=== PATIENT | female | born 1975 | race Two or more races ===

== ENCOUNTER 2020-06-27 13:45 | Outpatient (REF) | payer OTHER, SELFPAY | END 2020-06-27 13:46 | disposition home or self-care (01) | LOC: HO.LAB 13:45 | PROVIDERS: PCP Internal Medicine; Visit Provider Internal Medicine | DX: Z20.828 Contact with and (suspected) exposure to other viral communicable diseases (principal) | CPT/HCPCS: 87635 ==

== ENCOUNTER 2020-08-30 08:04 | Outpatient (REF) | payer OTHER, SELFPAY ==
[2020-08-30 08:14] LABS: MANUAL DIFF FLAG NO
[2020-08-30 08:19] LABS: Basophils Absolute Auto 0.1 X10*3/uL (0.0-0.2); Basophils Percent Auto 0.8 % (0-2); Eosinophils Absolute Auto 0.2 X10*3/uL (0.0-0.4); Eosinophils Percent Auto 1.4 % (0-4); Hematocrit 44.3 % (37-47); Hemoglobin 14.9 g/dl (12.0-16.0); Imm Gran Abs Auto 0.15 X10*3/uL (0.00-0.03); Imm Gran Pct Auto 1.4 % (0.0-0.4); Lymphocytes Absolute Auto 3.1 X10*3/uL (1.2-4.9); Lymphocytes Percent Auto 28.5 % (20-40); Mean Corpuscular HGB Conc 33.6 g/dl (31.0-35.0); Mean Corpuscular Hemoglobin 31.8 pg (27.0-33.0); Mean Corpuscular Volume 94.7 fL (80-98); Mean Platelet Volume 9.9 fL (9.4-12.3); Monocytes Absolute Auto 0.7 X10*3/uL (0.1-1.2); Monocytes Percent Auto 6.3 % (2-11); Neutrophils Absolute Auto 6.8 X10*3/uL (2.0-8.3); Neutrophils Percent Auto 61.6 % (45-73); Platelet Count 289 X10*3/uL (160-400); Red Blood Count 4.68 X10*6/uL (4.20-5.50); Red Cell Distribution Width 13.2 % (11.0-16.0)
[2020-08-30 09:01] LABS: Alanine Aminotransferase 13 U/L (0-31); Albumin Level 4.2 g/dL (3.5-5.0); Alkaline Phosphatase 67 U/L (39-117); Anion Gap 13 (12-20); Aspartate Amino Transferase 13 U/L (5-31); Bilirubin Total 0.2 mg/dL (0.0-1.0); Blood Urea Nitrogen 7 mg/dL (9-16); Carbon Dioxide 26 mmol/L (22-29); Chloride 106 mmol/L (96-108); Cholesterol 199 mg/dL; Estimated Glomerular Filt Rate > 60; Glucose Random 133 mg/dL (60-115); HDL Cholesterol 51 mg/dL; LDL Cholesterol Calculated 112 mg/dl; Potassium 3.9 mmol/l (3.3-5.1); Sodium 141 mmol/L (135-145); Triglycerides 183 mg/dL
[2020-08-30 09:08] LABS: Calcium 8.9 mg/dL (8.4-10.2)
[2020-08-30 09:13] LABS: Ferritin 29 ng/mL (10-250); Thyroid Stimulating Hormone 2.15 uIU/mL (0.32-4.0)
[2020-08-30 09:31] LABS: Creatinine Urine 60.12 mg/dL; Microalbumin Urine < 5.0 mg/L; Vitamin B12 < 146 pg/mL (200-900)
[2020-08-30 10:08] LABS: Estimated Average Glucose 151 mg/dL; Hemoglobin A1c % 6.9 %
== END 2020-08-30 08:05 | disposition home or self-care (01) ==
LOC: HO.LAB 08:04
PROVIDERS: PCP Internal Medicine; Visit Provider Internal Medicine
DX: D50.8 Other iron deficiency anemias (principal); E11.9 Type 2 diabetes mellitus without complications; E78.00 Pure hypercholesterolemia, unspecified; R80.9 Proteinuria, unspecified; I10 Essential (primary) hypertension
CPT/HCPCS: 36415; 80053; 80061; 82043; 82607; 82728; 83036; 84443; 85025

== ENCOUNTER 2020-09-12 13:58 | Outpatient (REF) | payer OTHER, SELFPAY ==
--- NOTE | 2020-09-12 14:05 | MM_ITS ---
EXAMINATION: MM SCREENING DIGITAL BREAST TOMOSYNTHESIS, BILATERAL CLINICAL INFORMATION: Screening. Asymptomatic. Family history breast cancer mother, cousin. The lifetime risk of breast cancer based on the Tyrer-Cuzick Model is 21%. COMPARISON: Mammography: 07/28/2019, 07/06/2018, 06/03/2017, 05/21/2016 TECHNIQUE: Digital breast tomosynthesis is performed in both the craniocaudal and mediolateral oblique views along with computer-aided detection (CAD). Synthesized 2D images are generated from the tomosynthesis. FINDINGS: There are scattered areas of fibroglandular density (ACR BI-RADS breast composition Category b). There are no significant masses, abnormal calcifications, or other abnormalities. Parenchymal pattern is similar to prior study. There is no developing density. The axilla and skin contours are unremarkable. MM/MM tomosynthesis screening BI IMPRESSION: No mammographic evidence of malignancy. ASSESSMENT: BI-RADS 1: Negative RECOMMENDATION: 1. Routine annual mammography screening. 2. The lifetime risk of breast cancer based on the Tyrer-Cuzick Model is 21%. Additional annual adjunct screening with breast MRI may be of benefit in women with a risk score of 20% or greater. This patient's information was entered into a reminder system with a target due date for their next mammogram.
== END 2020-09-12 13:59 | disposition home or self-care (01) ==
LOC: HO.MAMMO 13:58
PROVIDERS: PCP Internal Medicine; Visit Provider Internal Medicine
DX: Z12.31 Encounter for screening mammogram for malignant neoplasm of breast (principal)
CPT/HCPCS: 77063; 77067

== ENCOUNTER 2020-11-30 09:15 | Outpatient (REF) | payer OTHER, SELFPAY ==
[2020-11-30 09:56] LABS: Estimated Average Glucose 157 mg/dL; Hemoglobin A1c % 7.1 %
[2020-11-30 10:11] LABS: Alanine Aminotransferase 16 U/L (0-31); Albumin Level 4.2 g/dL (3.5-5.0); Alkaline Phosphatase 64 U/L (39-117); Anion Gap 11 (12-20); Aspartate Amino Transferase 14 U/L (5-31); Bilirubin Total 0.6 mg/dL (0.0-1.0); Blood Urea Nitrogen 8 mg/dL (9-16); Calcium 8.9 mg/dL (8.4-10.2); Carbon Dioxide 27 mmol/L (22-29); Chloride 108 mmol/L (96-108); Estimated Glomerular Filt Rate > 60; Glucose Random 119 mg/dL (60-115); Potassium 4.3 mmol/L (3.3-5.1); Sodium 142 mmol/L (135-145); Total Protein 6.8 g/dL (6.5-8.0)
== END 2020-11-30 09:16 | disposition home or self-care (01) ==
LOC: HO.LAB 09:15
PROVIDERS: PCP Internal Medicine; Visit Provider Internal Medicine
DX: D51.3 Other dietary vitamin B12 deficiency anemia (principal); E11.9 Type 2 diabetes mellitus without complications; E78.00 Pure hypercholesterolemia, unspecified; I10 Essential (primary) hypertension
CPT/HCPCS: 36415; 80053; 83036

== ENCOUNTER → 2020-12-18 15:28 | Outpatient (BNVA) | payer OTHER, SELFPAY | PROVIDERS: PCP Internal Medicine; Visit Provider Nurse Practitioner ==

== ENCOUNTER → 2021-01-11 13:24 | Outpatient (BNVA) | payer OTHER, SELFPAY | PROVIDERS: PCP Internal Medicine; Visit Provider Nurse Practitioner ==

== ENCOUNTER → 2021-02-13 08:17 | Outpatient (BNVA) | payer OTHER, SELFPAY | PROVIDERS: PCP Internal Medicine; Visit Provider Nurse Practitioner ==

== ENCOUNTER → 2021-04-16 08:21 | Outpatient (BNVA) | payer OTHER, SELFPAY | PROVIDERS: Visit Provider Nurse Practitioner ==

== ENCOUNTER → 2021-05-29 14:00 | Outpatient (BNVA) | payer OTHER, SELFPAY | PROVIDERS: Visit Provider Nurse Practitioner ==

== ENCOUNTER → 2021-08-13 15:08 | Outpatient (BNVA) | payer OTHER, SELFPAY | PROVIDERS: Visit Provider Nurse Practitioner ==

== ENCOUNTER 2021-09-26 11:48 | Outpatient (REF) | payer OTHER, SELFPAY ==
--- NOTE | ~2021-09-26 | MM_ITS ---
EXAMINATION: MM SCREENING DIGITAL BREAST TOMOSYNTHESIS, BILATERAL CLINICAL INFORMATION: Screening. Asymptomatic. The lifetime risk of breast cancer based on the Tyrer-Cuzick Model is 19.5%. COMPARISON: Mammography: 09/12/2020, 07/28/2019, 07/06/2018, 05/21/2016 TECHNIQUE: Digital breast tomosynthesis is performed in both the craniocaudal and mediolateral oblique views along with computer-aided detection (CAD). Synthesized 2D images are generated from the tomosynthesis. FINDINGS: There are scattered areas of fibroglandular density (ACR BI-RADS breast composition Category b). There are no significant masses, abnormal calcifications, or other abnormalities. Parenchymal pattern is similar to prior studies. There are scattered minor asymmetries similar to prior exams. No interval mass or architectural abnormality. The axilla and skin contours are unremarkable. MM/MM tomosynthesis screening BI IMPRESSION: No mammographic evidence of malignancy. ASSESSMENT: BI-RADS 2: Benign RECOMMENDATION: Routine annual mammography screening. This patient's information was entered into a reminder system with a target due date for their next mammogram.
== END 2021-09-26 11:49 | disposition home or self-care (01) ==
LOC: HO.MAMMO 11:48
PROVIDERS: Visit Provider Internal Medicine
DX: Z12.31 Encounter for screening mammogram for malignant neoplasm of breast (principal)
CPT/HCPCS: 77063; 77067

== ENCOUNTER 2021-12-06 15:25 | Outpatient (REF) | payer OTHER, SELFPAY ==
[2021-12-06 17:04] LABS: MANUAL DIFF FLAG NO
[2021-12-06 17:21] LABS: Basophils Absolute Auto 0.1 X10*3/uL (0.0-0.2); Basophils Percent Auto 0.8 % (0-2); Eosinophils Absolute Auto 0.1 X10*3/uL (0.0-0.4); Eosinophils Percent Auto 1.1 % (0-4); Hematocrit 42.5 % (37.0-47.0); Imm Gran Abs Auto 0.11 X10*3/uL (0.00-0.03); Lymphocytes Absolute Auto 2.5 X10*3/uL (1.2-4.9); Lymphocytes Percent Auto 22.1 % (20-40); Mean Corpuscular HGB Conc 32.9 g/dl (31.0-35.0); Mean Corpuscular Hemoglobin 31.3 pg (27.0-33.0); Mean Corpuscular Volume 95.1 fL (80.0-98.0); Mean Platelet Volume 9.6 fL (9.4-12.3); Monocytes Absolute Auto 0.8 X10*3/uL (0.1-1.2); Monocytes Percent Auto 6.8 % (2-11); Neutrophils Absolute Auto 7.7 x10*3/uL (2.0-8.3); Neutrophils Percent Auto 68.2 % (45-73); Platelet Count 318 X10*3/uL (160-400); Red Blood Count 4.47 X10*6/uL (4.20-5.50); White Blood Count 11.2 X10*3/uL (4.8-10.8)
[2021-12-06 17:43] LABS: C Reactive Protein 0.89 mg/dL (< or = 0.50)
== END 2021-12-06 15:26 | disposition home or self-care (01) ==
LOC: HO.LAB 15:25
PROVIDERS: PCP Internal Medicine; Referring Provider Internal Medicine; Visit Provider Nurse Practitioner
DX: R10.9 Unspecified abdominal pain (principal); K51.90 Ulcerative colitis, unspecified, without complications; K64.9 Unspecified hemorrhoids
CPT/HCPCS: 36415; 85025; 86140; 99212

== ENCOUNTER 2022-01-07 10:39 | Outpatient (REF) | payer OTHER, SELFPAY ==
[2022-01-07 10:55] LABS: MANUAL DIFF FLAG NO
[2022-01-07 11:09] LABS: Basophils Absolute Auto 0.2 X10*3/uL (0.0-0.2); Basophils Percent Auto 1.5 % (0-2); Eosinophils Absolute Auto 0.3 X10*3/uL (0.0-0.4); Eosinophils Percent Auto 2.5 % (0-4); Hematocrit 42.6 % (37.0-47.0); Hemoglobin 14.3 g/dl (12.0-16.0); Imm Gran Abs Auto 0.25 X10*3/uL (0.00-0.03); Imm Gran Pct Auto 2.5 % (0.0-0.4); Lymphocytes Absolute Auto 2.9 X10*3/uL (1.2-4.9); Lymphocytes Percent Auto 28.5 % (20-40); Mean Corpuscular HGB Conc 33.6 g/dl (31.0-35.0); Mean Corpuscular Volume 95.3 fL (80.0-98.0); Mean Platelet Volume 9.4 fL (9.4-12.3); Monocytes Absolute Auto 0.8 X10*3/uL (0.1-1.2); Monocytes Percent Auto 7.8 % (2-11); Neutrophils Absolute Auto 5.8 x10*3/uL (2.0-8.3); Neutrophils Percent Auto 57.2 % (45-73); Platelet Count 322 X10*3/uL (160-400); Red Blood Count 4.47 X10*6/uL (4.20-5.50); Red Cell Distribution Width 13.2 % (11.0-16.0); White Blood Count 10.1 X10*3/uL (4.8-10.8)
[2022-01-07 11:37] LABS: Alanine Aminotransferase 17 U/L (0-31); Alkaline Phosphatase 73 U/L (39-117); Anion Gap 13 (12-20); Aspartate Amino Transferase 15 U/L (5-31); Bilirubin Total 0.4 mg/dL (0.0-1.0); Blood Urea Nitrogen 9 mg/dL (9-16); Calcium 9.3 mg/dL (8.4-10.2); Carbon Dioxide 22 mmol/L (22-29); Chloride 109 mmol/L (96-108); Cholesterol 201 mg/dL; Estimated Glomerular Filt Rate > 60; Glucose Random 122 mg/dL (60-115); HDL Cholesterol 45 mg/dL; LDL Cholesterol Calculated 121 mg/dl; Sodium 140 mmol/L (135-145); Total Protein 6.8 g/dL (6.5-8.0); Triglycerides 177 mg/dL
[2022-01-07 11:58] LABS: Estimated Average Glucose 171 mg/dL; Hemoglobin A1c % 7.6 %
== END 2022-01-07 10:40 | disposition home or self-care (01) ==
LOC: HO.LAB 10:39
PROVIDERS: PCP Internal Medicine; Visit Provider Internal Medicine
DX: Z00.00 Encounter for general adult medical examination without abnormal findings (principal); E11.9 Type 2 diabetes mellitus without complications; E78.00 Pure hypercholesterolemia, unspecified; K51.30 Ulcerative (chronic) rectosigmoiditis without complications; I10 Essential (primary) hypertension
CPT/HCPCS: 36415; 80053; 80061; 83036; 85025

== ENCOUNTER → 2022-01-15 15:07 | Outpatient (BNVA) | payer OTHER, SELFPAY | PROVIDERS: PCP Internal Medicine; Referring Provider Internal Medicine; Visit Provider Nurse Practitioner | DX: K51.90 Ulcerative colitis, unspecified, without complications (principal); K64.9 Unspecified hemorrhoids; Z79.899 Other long term (current) drug therapy | CPT/HCPCS: 99212 ==

== ENCOUNTER 2022-01-16 15:10 | Outpatient (REF) | payer OTHER, SELFPAY ==
[2022-01-16 16:04] LABS: C Reactive Protein 0.83 mg/dL (< or = 0.50)
== END 2022-01-16 15:11 | disposition home or self-care (01) ==
LOC: HO.LAB 15:10
PROVIDERS: PCP Internal Medicine; Visit Provider Nurse Practitioner
DX: K51.90 Ulcerative colitis, unspecified, without complications (principal); K64.9 Unspecified hemorrhoids
CPT/HCPCS: 36415; 86140

== ENCOUNTER 2022-03-14 15:27 | Outpatient (REF) | payer OTHER, SELFPAY | END 2022-03-14 15:28 | disposition home or self-care (01) | LOC: HO.LAB 15:27 | PROVIDERS: PCP Internal Medicine; Visit Provider Nurse Practitioner | DX: K51.90 Ulcerative colitis, unspecified, without complications (principal) | CPT/HCPCS: 36415; 86140; 99212 ==

== ENCOUNTER 2022-04-13 10:29 | Outpatient (REF) | payer OTHER, SELFPAY ==
[2022-04-13 11:09] LABS: Estimated Average Glucose 166 mg/dL; Hemoglobin A1c % 7.4 %
[2022-04-13 11:25] LABS: Alanine Aminotransferase 17 U/L (0-31); Albumin Level 4.1 g/dL (3.5-5.0); Alkaline Phosphatase 69 U/L (39-117); Anion Gap 12 (12-20); Aspartate Amino Transferase 15 U/L (5-31); Bilirubin Total 0.4 mg/dL (0.0-1.0); Blood Urea Nitrogen 5 mg/dL (9-16); Carbon Dioxide 24 mmol/L (22-29); Chloride 107 mmol/L (96-108); Cholesterol 197 mg/dL; Estimated Glomerular Filt Rate > 60; Glucose Random 143 mg/dL (60-115); HDL Cholesterol 42 mg/dL; LDL Cholesterol Calculated 117 mg/dl; Potassium 4.4 mmol/L (3.3-5.1); Sodium 139 mmol/L (135-145); Total Protein 6.8 g/dL (6.5-8.0); Triglycerides 194 mg/dL
[2022-04-13 11:25] LABS: Creatinine Urine 66.06 mg/dL; Microalbum/Creatinine Ratio Ur 16.6 ug/mg cr
== END 2022-04-13 10:30 | disposition home or self-care (01) ==
LOC: HO.LAB 10:29
PROVIDERS: PCP Internal Medicine; Visit Provider Internal Medicine
DX: E11.65 Type 2 diabetes mellitus with hyperglycemia (principal); E78.00 Pure hypercholesterolemia, unspecified; I10 Essential (primary) hypertension
CPT/HCPCS: 36415; 80053; 80061; 82043; 83036

== ENCOUNTER → 2022-06-13 15:10 | Outpatient (BNVA) | payer OTHER, SELFPAY | PROVIDERS: PCP Internal Medicine; Visit Provider Nurse Practitioner | DX: K51.90 Ulcerative colitis, unspecified, without complications (principal) | CPT/HCPCS: 99212 ==

== ENCOUNTER 2022-06-21 14:00 | Outpatient (REF) | payer OTHER, SELFPAY ==
[2022-06-24 14:32] LABS: TS Negative Control Passed; TS Panel A 0; TS Panel B 0; TS Positive Control Passed; TSpotTB Negative (Negative)
== END 2022-06-21 14:01 | disposition home or self-care (01) ==
LOC: HO.LAB 14:00
PROVIDERS: PCP Internal Medicine; Visit Provider Nurse Practitioner
DX: Z11.1 Encounter for screening for respiratory tuberculosis (principal); K51.90 Ulcerative colitis, unspecified, without complications
CPT/HCPCS: 36415; 86481

== ENCOUNTER → 2022-06-27 15:14 | Outpatient (BNVA) | payer OTHER, SELFPAY | PROVIDERS: PCP Internal Medicine; Referring Provider Internal Medicine; Visit Provider Nurse Practitioner | DX: K51.90 Ulcerative colitis, unspecified, without complications (principal) | CPT/HCPCS: 99212 ==

== ENCOUNTER 2022-07-13 10:39 | Outpatient (REF) | payer OTHER, SELFPAY ==
[2022-07-13 10:49] LABS: MANUAL DIFF FLAG NO
[2022-07-13 11:30] LABS: Basophils Absolute Auto 0.1 X10*3/uL (0.0-0.2); Basophils Percent Auto 1.7 % (0-2); Eosinophils Absolute Auto 0.2 X10*3/uL (0.0-0.4); Eosinophils Percent Auto 1.8 % (0-4); Hematocrit 41.8 % (37.0-47.0); Hemoglobin 13.7 g/dl (12.0-16.0); Imm Gran Abs Auto 0.36 X10*3/uL (0.00-0.03); Imm Gran Pct Auto 4.2 % (0.0-0.4); Lymphocytes Absolute Auto 3.2 X10*3/uL (1.2-4.9); Lymphocytes Percent Auto 37.3 % (20-40); Mean Corpuscular HGB Conc 32.8 g/dl (31.0-35.0); Mean Corpuscular Volume 94.6 fL (80.0-98.0); Mean Platelet Volume 9.6 fL (9.4-12.3); Monocytes Absolute Auto 0.6 X10*3/uL (0.1-1.2); Monocytes Percent Auto 7.2 % (2-11); Neutrophils Absolute Auto 4.1 x10*3/uL (2.0-8.3); Neutrophils Percent Auto 47.8 % (45-73); Platelet Count 297 X10*3/uL (160-400); Red Blood Count 4.42 X10*6/uL (4.20-5.50); Red Cell Distribution Width 13.4 % (11.0-16.0); White Blood Count 8.5 X10*3/uL (4.8-10.8)
[2022-07-13 12:06] LABS: Estimated Average Glucose 192 mg/dL; Hemoglobin A1c % 8.3 %
[2022-07-13 12:34] LABS: Alanine Aminotransferase 16 U/L (0-31); Albumin Level 3.8 g/dL (3.5-5.0); Alkaline Phosphatase 62 U/L (39-117); Anion Gap 14 (12-20); Aspartate Amino Transferase 15 U/L (5-31); Bilirubin Total 0.4 mg/dL (0.0-1.0); Blood Urea Nitrogen 8 mg/dL (9-16); Calcium 8.8 mg/dL (8.4-10.2); Carbon Dioxide 26 mmol/L (22-29); Chloride 108 mmol/L (96-108); Estimated Glomerular Filt Rate > 60; Glucose Fasting 102 mg/dL (60-99); Potassium 3.8 mmol/L (3.3-5.1); Sodium 144 mmol/L (135-145); Total Protein 6.1 g/dL (6.5-8.0)
== END 2022-07-13 10:40 | disposition home or self-care (01) ==
LOC: HO.LAB 10:39
PROVIDERS: PCP Internal Medicine; Visit Provider Internal Medicine
DX: D50.9 Iron deficiency anemia, unspecified (principal); E11.69 Type 2 diabetes mellitus with other specified complication; E78.2 Mixed hyperlipidemia; I10 Essential (primary) hypertension
CPT/HCPCS: 36415; 80053; 83036; 85025

== ENCOUNTER → 2022-07-25 14:55 | Outpatient (BNVA) | payer OTHER, SELFPAY | PROVIDERS: PCP Internal Medicine; Visit Provider Nurse Practitioner | DX: K51.90 Ulcerative colitis, unspecified, without complications (principal); R10.9 Unspecified abdominal pain; Z83.71 Family history of colonic polyps | CPT/HCPCS: 99212 ==

== ENCOUNTER → 2022-09-05 15:23 | Outpatient (BNVA) | payer OTHER, SELFPAY | PROVIDERS: PCP Internal Medicine; Visit Provider Nurse Practitioner | DX: K51.90 Ulcerative colitis, unspecified, without complications (principal) | CPT/HCPCS: 99212 ==

== ENCOUNTER 2022-09-27 12:05 | Outpatient (REF) | payer OTHER, SELFPAY ==
--- NOTE | ~2022-09-27 | MM_ITS ---
EXAMINATION: MM SCREENING DIGITAL BREAST TOMOSYNTHESIS, BILATERAL CLINICAL INFORMATION: Screening. Asymptomatic. The lifetime risk of breast cancer based on the Tyrer-Cuzick Model is 20%. COMPARISON: Mammography: 09/26/2021, 09/12/2020, 07/28/2019, 07/06/2018 TECHNIQUE: Digital breast tomosynthesis is performed in both the craniocaudal and mediolateral oblique views along with computer-aided detection (CAD). Synthesized 2D images are generated from the tomosynthesis. Additional left MLO view is provided. FINDINGS: There are scattered areas of fibroglandular density (ACR BI-RADS breast composition Category b). There are no significant masses, abnormal calcifications, or other abnormalities. Parenchymal pattern is similar to prior studies. There is no developing density or architectural abnormality. The axilla and skin contours are unremarkable. No significant changes. MM/MM tomosynthesis screening BI IMPRESSION: No mammographic evidence of malignancy. ASSESSMENT: BI-RADS 1: Negative RECOMMENDATION: Routine annual mammography screening. This patient's information was entered into a reminder system with a target due date for their next mammogram.
== END 2022-09-27 12:06 | disposition home or self-care (01) ==
LOC: HO.MAMMO 12:05
PROVIDERS: PCP Internal Medicine; Visit Provider Internal Medicine
DX: Z12.31 Encounter for screening mammogram for malignant neoplasm of breast (principal)
CPT/HCPCS: 77063; 77067

== ENCOUNTER → 2022-10-17 14:50 | Outpatient (BNVA) | payer OTHER, SELFPAY | PROVIDERS: PCP Internal Medicine; Visit Provider Nurse Practitioner | DX: K51.90 Ulcerative colitis, unspecified, without complications (principal); Z83.71 Family history of colonic polyps | CPT/HCPCS: 99212 ==

== ENCOUNTER 2022-10-21 06:05 | Outpatient (REF) | payer OTHER, SELFPAY | END 2022-10-21 06:06 | disposition home or self-care (01) | LOC: HO.LAB 06:05 | PROVIDERS: PCP Internal Medicine; Visit Provider Internal Medicine | DX: Z13.89 Encounter for screening for other disorder (principal) ==

== ENCOUNTER 2022-10-22 06:09 | Outpatient (REF) | payer OTHER, SELFPAY ==
[2022-10-22 08:16] LABS: Estimated Average Glucose 174 mg/dL; Hemoglobin A1c % 7.7 %
[2022-10-22 08:42] LABS: Alanine Aminotransferase 17 U/L (0-31); Alkaline Phosphatase 67 U/L (39-117); Anion Gap 16 (12-20); Aspartate Amino Transferase 15 U/L (5-31); Bilirubin Total 0.6 mg/dL (0.0-1.0); Blood Urea Nitrogen 12 mg/dL (9-16); Calcium 9.4 mg/dL (8.4-10.2); Carbon Dioxide 27 mmol/L (22-29); Chloride 105 mmol/L (96-108); Cholesterol 220 mg/dL; Estimated Glomerular Filt Rate > 60; Glucose Random 104 mg/dL (60-115); HDL Cholesterol 49 mg/dL; LDL Cholesterol Calculated 132 mg/dl; Potassium 3.8 mmol/L (3.3-5.1); Sodium 144 mmol/L (135-145); Total Protein 6.4 g/dL (6.5-8.0); Triglycerides 199 mg/dL
[2022-10-22 08:45] LABS: Creatinine Urine 128.82 mg/dL; Microalbum/Creatinine Ratio Ur 14.7 ug/mg cr
[2022-10-22 09:21] LABS: Folate 12.4 ng/mL (> or = 4.0); Vitamin B12 < 148 pg/mL (200-900)
== END 2022-10-22 06:10 | disposition home or self-care (01) ==
LOC: HO.LAB 06:09
PROVIDERS: PCP Internal Medicine; Visit Provider Internal Medicine
DX: D51.9 Vitamin B12 deficiency anemia, unspecified (principal); E11.65 Type 2 diabetes mellitus with hyperglycemia; E78.00 Pure hypercholesterolemia, unspecified; R80.9 Proteinuria, unspecified
CPT/HCPCS: 36415; 80053; 80061; 82043; 82607; 82746; 83036

== ENCOUNTER → 2022-11-14 14:57 | Outpatient (BNVA) | payer OTHER, SELFPAY | PROVIDERS: PCP Internal Medicine; Visit Provider Nurse Practitioner | DX: K51.90 Ulcerative colitis, unspecified, without complications (principal); K64.9 Unspecified hemorrhoids; Z79.52 Long term (current) use of systemic steroids; Z83.71 Family history of colonic polyps | CPT/HCPCS: 99212 ==

== ENCOUNTER 2023-01-05 10:18 | Emergency (ER) | payer OTHER, SELFPAY ==
[2023-01-05 10:36] VITALS: BP 117/64; PULSE 108; RESP 18; TEMP 36.3; O2SAT 95; BMI 25.2
--- NOTE | 2023-01-05 10:58 | ED_ITS ---
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 patient's symptoms started since yesterday pain as localized to the epigastric area and left upper quadrant area, pain has been co nstant since yesterday no radiation, constant frequent vomiting patient vomited 5-7 times since yesterday still feeling nausea, nonbloody watery diarrhea. No dysuria, no frequency urination. No past surgical history in the abdomen, patient do not think she is today. Related Data Home Medications Medication Instructions Recorded Confirmed cyanocobalamin (vitamin B-12) 1,000 mcg PO DAILY 12/18/20 1,000 mcg tablet ezetimibe 10 mg tablet 10 mg PO DAILY 12/18/20 metformin 1,000 mg tablet 1,000 mg PO BID 12/18/20 valsartan 320 mg tablet 320 mg PO DAILY 12/18/20 rosuvastatin 40 mg tablet 40 mg PO DAILY 03/14/22 dulaglutide 1.5 mg/0.5 mL mg subcut QWEEK 07/25/22 subcutaneous pen injector (Trulicity) glimepiride 2 mg tablet 2 mg PO DAILY 11/14/22 Previous Rx's Medication Instructions Recorded dicyclomine 10 mg capsule See Rx Instructions PO QID 30 days 04/16/21 #120 caps simethicone 180 mg capsule 180 mg PO QID 30 days #120 caps 12/06/21 hydrocortisone 1 % topical cream 1 appl HI BID PRN skin irritation 01/15/22 (Ala-Olivier) 30 days #28.4 grams mesalamine 1.2 gram tablet,delayed 4.8 g PO DAILY 30 days #120 tabs 09/05/22 release adalimumab 40 mg/0.4 mL 40 mg (0.4 mL) subcut Q2W #2 ea 10/04/22 subcutaneous pen kit (Humira(CF) Pen) prednisone 20 mg tablet 20 mg PO DAILY #30 tabs 12/30/22 Allergies Allergy/AdvReac Type Severity Reaction Status Date / Time No Known Allergies Allergy Verified 01/05/23 10:39 [No Known Allergies*] Review of Systems Review of Systems: All other systems are reviewed and are negative Constitutional: Reports as per HPI and Reports no additional constitutional co mplaints Eyes: Reports as per HPI and Reports no additional eye complaints Reports system reviewed and no additional complaints, except as documented Cardiovascular: Reports as per HPI and Reports no additional cardiovascular complaints Respiratory: Reports as per HPI and Reports no additional respiratory complaints Gastrointestinal: Reports as per HPI and Reports no additional gastrointestinal complaints Genitourinary: Reports no additional female genitourinary complaints Musculoskeletal: Reports no additional musculoskeletal complaints Skin/Breast: Reports system reviewed and no additional complaints, except as docu Psychiatric: Reports no additional psychiatric complaints Endocrine: Reports no additional endocrine complaints Hematologic/Lymphatic: Reports no additional hematologic/lymphatic complaints Allergic/Immunologic: Reports no additional allergic/immunologic complaints Reports system reviewed and no additional complaints, except as documented and Reports Abnormal speech present [facility] Past Medical History Surgical History Hx of section Hx of colonoscopy Family History Family History Father No problems noted. Mother Breast cancer Social History Social History Alcohol intake: current Alcohol intake frequency: does not drink Advance Directives: No Advance Directives Information Provided: Yes Physical Exam Vital Signs: Vital Signs: Last Vital Signs Temp 97.3 F 01/05/23 10:36 Pulse 96 01/05/23 11:56 Resp 16 01/05/23 11:56 BP 100/60 01/05/23 11:56 Pulse Ox 96 01/05/23 11:56 O2 Del Method Room Air 01/05/23 11:56 BMI result Body Mass Index 25.2 Vital signs have been reviewed as appeared to be correct. Blood pressure normal. Heart rate normal. Respiration rate normal. Temperature normal. Oxygen saturation normal. Appearance: Alert. Oriented X3. No acute distress. Head: Normal external exam. Normocephalic. Atraumatic. No [place] signs noted. No raccoon eyes noted Eyes: PERRLA. EOMI. Conjunctiva and sclera normal. Eyelids normal. ENT: TM's Normal. Pharynx normal. Uvula midline. Moist mucous membranes. No trismus noted. No drooling noted. No muffled voice noted. Neck: Normal inspection. Neck supple. FROM. No adenopathy. Thyroid Normal. No meningeal signs. No neck mass noted. CVS: Normal heart rate and rhythm. Heart sound normal. No murmurs noted. Pulses normal throughout. Respiratory: No respiratory distress. Painless inspiration. Breath sounds normal. No wheezes/rales/rhonchi noted. Chest nontender. No accessory muscle usage noted or decreased air movement noted. Abdomen: Soft, epigastric tenderness, no rebound tenderness, no guarding.. Bowel sounds normal in all 4 quadrants. No distention noted. No organomegaly noted. No visible injury noted. Back: No CVA tenderness. Full range of motion noted. Skin: Skin warm and dry. Normal skin color. Normal skin turgor. No mary hes/lesions/lacerations noted. Extremities: No lower extremity edema. Extremities exhibit normal range of motion. Extremities nontender. Neuro: Oriented X 3. Cranial nerve exam: II-XII are grossly intact No motor deficit. No sensory deficit. Reflexes normal. Course Course Course Narrative: Acute gastroenteritis, patient feels better after IV hydration and given Zofran with Imodium able to tolerate p.o. intake. Medications Administered Generic Name Dose Route Start Last Admin Trade Name Freq PRN Reason Stop Dose Admin Sodium Chloride 1,000 mls @ 999 mls/hr 01/05/23 12:30 01/05/23 12:37 Ns IV 01/05/23 13:30 999 mls/hr .Q1H1M ONE Administration Discontinued Medications Generic Name Dose Route Start Last Admin Trade Name Freq PRN Reason Stop Dose Admin Al Hydroxide/Mg Hydroxide 30 ml 01/05/23 12:28 01/05/23 12:36 Magnesium Hydrox/Alum Hydrox 30 Ml Oral.Susp PO 01/05/23 12:29 30 ml ONCE ONE Administration Famotidine 20 mg 01/05/23 12:28 01/05/23 12:36 Famotidine/Pf 20 Mg/2 Ml Vial IVPUSH 01/05/23 12:29 20 mg ONCE ONE Administration Loperamide HCl 2 mg 01/05/23 12:28 01/05/23 12:37 Loperamide Hcl 2 Mg Capsule PO 01/05/23 12:29 2 mg ONCE ONE Administration Ondansetron HCl 4 mg 01/05/23 12:28 01/05/23 12:37 Ondansetron Hcl 4 Mg/2 Ml Vial IVPUSH 01/05/23 12:29 4 mg ONCE ONE Administration Medical Decision Making Differential Diagnosis Differential Diagnoses: The differential diagnosis associated with the presentation includes (Gastroenteritis, food poisoning, electrolyte disturbance, dehydration, LUCINDA.) Lab Data MDM Lab Attestation statement: I reviewed the patient's lab results. 01/05/23 11:04 01/05/23 11:04 Labs: Lab Results 01/05/23 01/05/23 01/05/23 Range/Units 11:04 11:04 12:18 WBC 12.9 H (4.8-10.8) X10*3/uL RBC 4.76 (4.20-5.50) X10*6/uL Hgb 14.7 (12.0-16.0) g/dl Hct 44.6 (37.0-47.0) % MCV 93.7 (80.0-98.0) fL MCH 30.9 (27.0-33.0) pg MCHC 33.0 (31.0-35.0) g/dl RDW 13.3 (11.0-16.0) % Plt Count 307 (160-400) X10*3/uL MPV 9.4 (9.4-12.3) fL Immature Gran % (Auto) 0.5 H (0.0-0.4) % Neut % (Auto) 67.4 (45-73) % Lymph % (Auto) 22.3 (20-40) % [place] % (Auto) 6.6 (2-11) % Eos % (Auto) 1.9 (0-4) % Baso % (Auto) 1.3 (0-2) % Lymph # (Auto) 2.9 (1.2-4.9) X10*3/uL [place] # (Auto) 0.9 (0.1-1.2) X10*3/uL Eos # (Auto) 0.2 (0.0-0.4) X10*3/uL Baso # (Auto) 0.2 (0.0-0.2) X10*3/uL Abs Immat Gran (auto) 0.07 H (0.00-0.03) X10*3/uL Absolute Neuts (auto) 8.7 H (2.0-8.3) x10*3/uL Absolute Nucleated RBC 0.000 (0.0-0.012) X10*3/uL Nucleated RBC % (auto) 0.0 (0.0-0.2) /100WBC Sodium 140 (135-145) mmol/L Potassium 3.9 (3.3-5.1) mmol/L Chloride 110 H (96-108) mmol/L Carbon Dioxide 20 L (22-29) mmol/L Anion Gap 14 (12-20) BUN 11 (9-16) mg/dL Creatinine 0.81 (0.5-1.4) mg/dL Estim Creat Clear Calc 64.4 Estimated GFR > 60 Random Glucose 134 H (60-115) mg/dL Calcium 8.9 (8.4-10.2) mg/dL Total Bilirubin 0.9 (0.0-1.0) mg/dL AST 22 (5-31) U/L ALT 22 (0-31) U/L Alkaline Phosphatase 67 (39-117) U/L Total Protein 7.0 (6.5-8.0) g/dL Albumin 4.2 (3.5-5.0) g/dL Lipase 33 (8-78) U/L Urine Color Yellow Urine Appearance Clear Urine pH 5.5 (5.0-9.0) Ur Specific [place] >= 1.030 H (1.005-1.025) Urine Protein Negative (Neg-Trace) mg/dL Urine Glucose (UA) >=1000 H (Negative) mg/dL Urine Ketones Negative (Negative) mg/dL Urine Blood Negative (Negative) Urine Nitrite Positive H (Negative) Ur Leukocyte Esterase Negative (Negative) Urine RBC 0-2 (0-2) /HPF Urine WBC 6-10 H (0-5) /HPF Ur Squamous Epith Cells 3-5 (0-2) /HPF Urine Bacteria 4+ (None Seen) Hyaline Casts 0-2 (0-2) /LPF Urine Test (NEGATIVE) 01/05/23 Range/Units 12:18 WBC (4.8-10.8) X10*3/uL RBC (4.20-5.50) X10*6/uL Hgb (12.0-16.0) g/dl Hct (37.0-47.0) % MCV (80.0-98.0) fL MCH (27.0-33.0) pg MCHC (31.0-35.0) g/dl RDW (11.0-16.0) % Plt Count (160-400) X10*3/uL MPV (9.4-12.3) fL Immature Gran % (Auto) (0.0-0.4) % Neut % (Auto) (45-73) % Lymph % (Auto) (20-40) % [place] % (Auto) (2-11) % Eos % (Auto) (0-4) % Baso % (Auto) (0-2) % Lymph # (Auto) (1.2-4.9) X10*3/uL [place] # (Auto) (0.1-1.2) X10*3/uL Eos # (Auto) (0.0-0.4) X10*3/uL Baso # (Auto) (0.0-0.2) X10*3/uL Abs Immat Gran (auto) (0.00-0.03) X10*3/uL Absolute Neuts (auto) (2.0-8.3) x10*3/uL Absolute Nucleated RBC (0.0-0.012) X10*3/uL Nucleated RBC % (auto) (0.0-0.2) /100WBC Sodium (135-145) mmol/L Potassium (3.3-5.1) mmol/L Chloride (96-108) mmol/L Carbon Dioxide (22-29) mmol/L Anion Gap (12-20) BUN (9-16) mg/dL Creatinine (0.5-1.4) mg/dL Estim Creat Clear Calc Estimated GFR Random Glucose (60-115) mg/dL Calcium (8.4-10.2) mg/dL Total Bilirubin (0.0-1.0) mg/dL AST (5-31) U/L ALT (0-31) U/L Alkaline Phosphatase (39-117) U/L Total Protein (6.5-8.0) g/dL Albumin (3.5-5.0) g/dL Lipase (8-78) U/L Urine Color Urine Appearance Urine pH (5.0-9.0) Ur Specific [place] (1.005-1.025) Urine Protein (Neg-Trace) mg/dL Urine Glucose (UA) (Negative) mg/dL Urine Ketones (Negative) mg/dL Urine Blood (Negative) Urine Nitrite (Negative) Ur Leukocyte Esterase (Negative) Urine RBC (0-2) /HPF Urine WBC (0-5) /HPF Ur Squamous Epith Cells (0-2) /HPF Urine Bacteria (None Seen) Hyaline Casts (0-2) /LPF Urine Test NEGATIVE (NEGATIVE) Discharge Plan Discharge Clinical Impression: Gastroenteritis Patient Disposition: Home, Self-Care Instructions: Gastroenteritis (ED) Prescriptions: No Action Humira(CF) Pen 40 mg/0.4 mL pen injector kit 40 mg subcut Q2W Qty: 2 6RF prednisone 20 mg tablet 20 mg PO DAILY Qty: 30 0RF dicyclomine 10 mg capsule See Rx Instructions PO QID 30 Days Qty: 120 3RF Rx Instructions: 1-2 caps PO 4 times a day; ezetimibe 10 mg tablet 10 mg PO DAILY valsartan 320 mg tablet 320 mg PO DAILY cyanocobalamin (vitamin B-12) 1,000 mcg tablet 1,000 mcg PO DAILY metformin 1,000 mg tablet 1,000 mg PO BID hydrocortisone [Ala-Olivier] 1 % cream 1 appl HI BID PRN (Reason: skin irritation) 30 Days Qty: 28.4 3RF Rx Instructions: jPlease include rectal applicator/cone Trulicity 1.5 mg/0.5 mL pen injector subcut QWEEK mesalamine 1.2 gram tablet,delayed release (DR/EC) 4.8 g PO DAILY 30 Days Qty: 120 1RF simethicone 180 mg capsule 180 mg PO QID 30 Days Qty: 120 3RF Rx Instructions: after meals rosuvastatin 40 mg tablet 40 mg PO DAILY glimepiride 2 mg tablet 2 mg PO DAILY Referrals: Cecilia Pierce MD [Primary Care Provider] -
[2023-01-05 11:08] LABS: MANUAL DIFF FLAG NO
[2023-01-05 11:09] LABS: Basophils Absolute Auto 0.2 X10*3/uL (0.0-0.2); Basophils Percent Auto 1.3 % (0-2); Eosinophils Absolute Auto 0.2 X10*3/uL (0.0-0.4); Eosinophils Percent Auto 1.9 % (0-4); Hematocrit 44.6 % (37.0-47.0); Hemoglobin 14.7 g/dl (12.0-16.0); Imm Gran Abs Auto 0.07 X10*3/uL (0.00-0.03); Imm Gran Pct Auto 0.5 % (0.0-0.4); Lymphocytes Absolute Auto 2.9 X10*3/uL (1.2-4.9); Lymphocytes Percent Auto 22.3 % (20-40); Mean Corpuscular Hemoglobin 30.9 pg (27.0-33.0); Mean Corpuscular Volume 93.7 fL (80.0-98.0); Mean Platelet Volume 9.4 fL (9.4-12.3); Monocytes Absolute Auto 0.9 X10*3/uL (0.1-1.2); Monocytes Percent Auto 6.6 % (2-11); Neutrophils Absolute Auto 8.7 x10*3/uL (2.0-8.3); Neutrophils Percent Auto 67.4 % (45-73); Platelet Count 307 X10*3/uL (160-400); Red Blood Count 4.76 X10*6/uL (4.20-5.50); Red Cell Distribution Width 13.3 % (11.0-16.0); White Blood Count 12.9 X10*3/uL (4.8-10.8)
[2023-01-05 11:25] LABS: Alanine Aminotransferase 22 U/L (0-31); Albumin Level 4.2 g/dL (3.5-5.0); Alkaline Phosphatase 67 U/L (39-117); Anion Gap 14 (12-20); Aspartate Amino Transferase 22 U/L (5-31); Bilirubin Total 0.9 mg/dL (0.0-1.0); Blood Urea Nitrogen 11 mg/dL (9-16); Calcium 8.9 mg/dL (8.4-10.2); Carbon Dioxide 20 mmol/L (22-29); Chloride 110 mmol/L (96-108); Creatinine Clr Calc Pharmacy 64.4; Estimated Glomerular Filt Rate > 60; Glucose Random 134 mg/dL (60-115); Lipase 33 U/L (8-78); Potassium 3.9 mmol/L (3.3-5.1); Sodium 140 mmol/L (135-145)
[2023-01-05 11:56] VITALS: BP 100/60; PULSE 96; RESP 16; O2SAT 96
[2023-01-05 12:30] LABS: Appearance Urine Clear; Color Urine Yellow; Glucose Urine UA >=1000 mg/dL (Negative); Leukocyte Esterase Urine Negative (Negative); Nitrite Urine Positive (Negative); PH 5.5 (5.0-9.0); Specific Gravity - Urine >= 1.030 (1.005-1.025); UMIC TRIGGER UACC YES; Urine Blood Negative (Negative); Urine Ketones Negative (Negative); Urine Protein Negative (Neg-Trace)
[2023-01-05 12:33] LABS: UPreg QC Valid YES; Urine Pregnancy NEGATIVE (NEGATIVE)
[2023-01-05 12:35] LABS: Bacteria Urine 4+ (None Seen); Hyaline Casts Urine 0-2 /LPF (0-2); RBC Urine 0-2 /HPF (0-2); UACC Culture Trigger YES
[2023-01-05] MEDS: Magnesium Hydrox/Alum Hydrox 30 ML ORAL.SUSP PO (12:36)
[2023-01-05] MEDS: Famotidine/PF 20 MG/2 ML VIAL IVPUSH (12:36)
[2023-01-05] MEDS: ondansetron HCL 4 MG/2 ML VIAL IVPUSH (12:37)
[2023-01-05] MEDS: 0.9 % Sodium Chloride 1,000 ML 999 ML IV (12:37)
[2023-01-05] MEDS: Loperamide HCl 2 MG CAPSULE PO (12:37)
--- NOTE | 2023-01-05 12:42 | PC.NURSE ---
Pt medicated per the MAR, fluids infusing. Call senior within reach. Pt resting quietly on stretcher
== END 2023-01-05 14:10 | disposition home or self-care (01) ==
PROVIDERS: Emergency Provider Emergency Medicine; PCP Internal Medicine
DX: K52.9 Noninfective gastroenteritis and colitis, unspecified (principal); R10.13 Epigastric pain; Z79.899 Other long term (current) drug therapy
CPT/HCPCS: 36415; 80053; 81001; 81025; 83690; 85025; 87086; 87088; 87186; 96361; 96374; 96375; 99284; J2405

== ENCOUNTER 2023-01-08 09:27 | Emergency (ER) | payer OTHER, SELFPAY ==
--- NOTE | ~2023-01-08 | CT_ITS ---
EXAMINATION: CT ABDOMEN AND PELVIS WITH CONTRAST CLINICAL INFORMATION: Periumbilical abdominal pain. Nausea, vomiting, diarrhea. COMPARISON: 05/30/2018 and 04/12/2019. TECHNIQUE: Multidetector volumetric images were obtained from the superior aspect of the liver through the pubic symphysis following administration 85 mL of Omnipaque 350 intravenous contrast. Sagittal and coronal reformatted images were obtained on the technologist's workstation. Oral contrast: No This CT examination was performed using dose optimization techniques as appropriate, variously including the following: *Automated exposure control *Adjustment of mA and/or kV according to patient size (this includes techniques or standardized protocols for targeted exams where dose is matched to indication/reason for exam; i.e. extremities or head) *Use of iterative reconstruction technique DLP: 397 mGy-cm FINDINGS: LUNG BASES: Minimal atelectasis at posterior lower lobes. No pulmonary consolidation or pleural effusion. LIVER: Liver has normal size and contour. The subcapsular hemangioma of hepatic segment 7 measures up to 4 cm maximum AP dimension and is unchanged in size compared to 04/12/2019. Also, there are other stable foci of contrast enhancement in the inferolateral right hepatic lobe consistent with cavernous hemangiomas, also observed on the abdomen MRI of 06/17/2016. A 0.9 cm hypodense focus in the left lobe liver is likely a hemangioma, as well, and previously measured 0.5 cm on the MRI from 06/17/2016.. GALLBLADDER AND BILIARY TREE: Gallbladder is without radiopaque stones, wall thickening or pericholecystic fluid. No dilated bile ducts. PANCREAS: Normal. No edema, pancreatic ductal dilatation or mass. SPLEEN: Normal. ADRENAL GLANDS: Normal. KIDNEYS AND URETERS: Kidneys are normal in size and enhance symmetrically. No renal stone or hydronephrosis. 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 The ureters are unremarkable. BLADDER: Normal. No calculi or wall thickening. BOWEL AND PERITONEUM: No dilated loops of bowel. No focal bowel wall thickening or free fluid. No pneumoperitoneum. There is some liquid stool within the rectum without rectal wall thickening. The undulating appendix is seen projecting medial to the cecum Previously, the appendix had some gas within its lumen whereas on this current examination, a small amount of fluid is present in the lumen. The appendix is 0.7 cm diameter. There is some subtle haziness of fat in the periappendiceal region but this observation is too subtle for any confident diagnosis of acute appendicitis. The appendix tapers to 0.4 - 0.5 cm diameter at its tip. Nearby lymph nodes in the right mesentery measure up to 0.6 cm short axis dimension, unchanged in size compared to 10/10/2016. ABDOMINAL WALL: Unremarkable. VASCULATURE: Abdominal aorta is normal in caliber and its branches are widely patent. Inferior vena cava is normal. 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 LYMPH NODES: Several lymph nodes are observed within the mesorectal compartment, largest 0.6 cm in short axis dimension (0.7 cm on 05/30/2018). There are no enlarging lymph nodes. No retroperitoneal, iliac or inguinal lymphadenopathy. PELVIC VISCERA: A contraceptive device is well-positioned within the endometrium. Calcified leiomyoma(s) of the right uterus remain unchanged. A intramural leiomyoma of the left uterine body measures up to 3.5 cm compared to approximately 2.5 cm on 05/30/2018. There is a 3 x 1.7 cm simple cyst of the right adnexa. This is almost certainly benign. No follow-up imaging recommended. No pelvic free fluid. MUSCULOSKELETAL: No suspicious bone lesions. The visualized lower thoracic and lumbar vertebra have normal height and alignment. No evidence of sacroiliitis. Pelvic bones are intact. CT/CT abdomen pelvis w IV con IMPRESSION: * No evidence of gastrointestinal tract obstruction. * The appendix measures up to 0.7 cm diameter and a small amount of fluid is present in the lumen of the appendix. Note that the appendix had some intraluminal gas on prior CT exams. The thickness of the appendiceal wall is not appreciably changed compared to 05/30/2018 but is more difficult to compared to 04/12/2019 since there was mild distention of the appendix by intraluminal gas on 05/30/2018. Although patient is presenting with periumbilical pain, the imaging findings are considered equivocal/doubtful for mild appendicitis. Since there is no overt appendicitis, consider whether clinical observation can be pursued. * There is some liquid stool within the rectum without rectal wall thickening or perirectal fat stranding. No evidence of proctitis, acute enteritis or colitis. Although a few slightly prominent lymph nodes are seen within the mesorectal compartment have not increased in size compared to prior exams. * Leiomyomatous uterus. * Cavernous hemangiomas of the liver. 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
[2023-01-08 09:29] VITALS: BP 144/78; PULSE 104; RESP 20; TEMP 36.8; O2SAT 100; BMI 25.0
--- NOTE | 2023-01-08 09:39 | ED_ITS ---
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 She states she was here on January 05 for similar symptoms. She states they told her she had gastroenteritis. Symptoms better earlier this week but returned yesterday. She reports epigastric and middle abdominal pains as well. She states having liquid, nonbloody stools as often as every half hour. She had 3 episodes last night and 3 episodes this morning. She is taking Imodium with no relief. She is tolerating PO liquids but has not appetite for food. NO fevers. No recent travel or abx. No known sick contacts at home. MD elicited complaint: nausea, vomiting, diarrhea and abdominal pain Pertinent past history: other (UC) Onset (ago): day(s) (4) Description of diarrhea: watery Associated nausea: Yes Associated abdominal pain: Yes Location of pain: epigastric and periumbilical Pain consistency: intermittent Severity: moderate Quality: aching Exacerbating factors: eating Relieving factors: none Treatment prior to arrival: immodium Related Data Home Medications Medication Instructions Recorded Confirmed cyanocobalamin (vitamin B-12) 1,000 mcg PO DAILY 12/18/20 1,000 mcg tablet ezetimibe 10 mg tablet 10 mg PO DAILY 12/18/20 metformin 1,000 mg tablet 1,000 mg PO BID 12/18/20 valsartan 320 mg tablet 320 mg PO DAILY 12/18/20 rosuvastatin 40 mg tablet 40 mg PO DAILY 03/14/22 dulaglutide 1.5 mg/0.5 mL mg subcut QWEEK 07/25/22 subcutaneous pen injector ([facility]) glimepiride 2 mg tablet 2 mg PO DAILY 11/14/22 Previous Rx's Medication Instructions Recorded dicyclomine 10 mg capsule See Rx Instructions PO QID 30 days 04/16/21 #120 caps simethicone 180 mg capsule 180 mg PO QID 30 days #120 caps 12/06/21 hydrocortisone 1 % topical cream 1 appl [place] BID PRN skin irritation 01/15/22 (Ala-Olivier) 30 days #28.4 grams mesalamine 1.2 gram tablet,delayed 4.8 g PO DAILY 30 days #120 tabs 09/05/22 release adalimumab 40 mg/0.4 mL 40 mg (0.4 mL) subcut Q2W #2 ea 10/04/22 subcutaneous pen kit (Humira(CF) Pen) prednisone 20 mg tablet 20 mg PO DAILY #30 tabs 12/30/22 cefuroxime axetil 250 mg tablet 250 mg PO BID 7 days #14 tabs 01/08/23 naproxen 500 mg tablet 500 mg PO BID PRN pain #20 tabs 01/08/23 ondansetron 4 mg disintegrating 4 mg PO Q8H PRN nausea and 01/08/23 tablet vomiting 3 days #10 tabs Allergies Allergy/AdvReac Type Severity Reaction Status Date / Time No Known Allergies Allergy Verified 01/05/23 10:39 [No Known Allergies*] Review of Systems Gastrointestinal: Gastrointestinal: Reports nausea PMFSH Past Medical History Surgical History Hx of section Hx of colonoscopy Family History Family History Father No problems noted. Mother Breast cancer Social History Social History Alcohol intake: current Alcohol intake frequency: does not drink Advance Directives: No Physical Exam Vital Signs: Vital Signs: Last Vital Signs Temp 98.5 F 01/08/23 14:27 Pulse 97 01/08/23 14:27 Resp 16 01/08/23 14:27 BP 118/67 01/08/23 14:27 Pulse Ox 99 01/08/23 14:27 O2 Del Method Room Air 01/08/23 14:27 BMI result Body Mass Index 25.0 Medications Administered Discontinued Medications Generic Name Dose Route Start Last Admin Trade Name Freq PRN Reason Stop Dose Admin Sodium Chloride 1,000 mls @ 999 mls/hr 01/08/23 09:45 01/08/23 12:13 Ns IVCONT 01/08/23 10:45 Infused .Q1H1M RICARDO Infusion Iohexol 85 ml 01/08/23 10:43 01/08/23 10:44 Iohexol 350 Mg/Ml 100 Ml Infus..Btl IV 01/08/23 10:44 85 ml ONCE ONE Administration Ondansetron HCl 4 mg 01/08/23 09:40 01/08/23 09:59 Ondansetron Hcl 4 Mg/2 Ml Vial IVPUSH 01/08/23 09:41 4 mg ONCE ONE Administration Medical Decision Making Medical Decision Making [facility] Narrative: 47-year-old female with history of ulcerative colitis presents to the ER for evaluation of upper and middle abdominal pain along with nausea, vomiting, nonbloody diarrhea for the last 4 days. She was seen here recently for the same. She did not have imaging of her abdomen done at that time. She has some periumbilical abdominal tenderness so a CT scan was performed. There was some mild inflammation of the appendix, question early appendicitis. Patient had no right lower quadrant tenderness. Dr. Corley from surgery was contacted, agrees clinical presentation is not consistent with acute appendicitis. Stool cultures showed norovirus. Her pain was improved. She did have ongoing diarrhea here but was able to tolerate p.o.. rn compliance is used to discuss the results of her CT scan and her lab work. She is stable for discharge home with supportive care. Of note patient was found to have an E coli UTI on 01/05, this was not treated. She does have some urinary symptoms. Will treat her. She is stable for DC home. Differential Diagnosis Differential Diagnoses: The differential diagnosis associated with the presentation includes Ulcerative colitis flare, bacterial gastroenteritis, viral gastroenteritis, a ppendicitis, diverticulitis, gastritis Admission/Observation Consideration of admission/observation: Escalation of care including admissio n/observation considered Consult Healthcare Provider Management of the patient was discussed with: Dealer Sales Rep Dr. Corley from surgery Lab Data [facility] Lab Attestation statement: I reviewed the patient's lab results. Leukocytosis 15.4. Minimally elevated inflammatory markers. 01/08/23 09:45 01/08/23 09:45 Labs: Lab Results 01/08/23 01/08/23 01/08/23 Range/Units 09:45 09:45 09:45 WBC 15.4 H (4.8-10.8) X10*3/uL RBC 5.06 (4.20-5.50) X10*6/uL Hgb 15.8 (12.0-16.0) g/dl Hct 46.8 (37.0-47.0) % MCV 92.5 (80.0-98.0) fL MCH 31.2 (27.0-33.0) pg MCHC 33.8 (31.0-35.0) g/dl RDW 13.2 (11.0-16.0) % Plt Count 329 (160-400) X10*3/uL MPV 9.5 (9.4-12.3) fL Immature Gran % (Auto) 0.6 H (0.0-0.4) % Neut % (Auto) 70.6 (45-73) % Lymph % (Auto) 17.6 L (20-40) % [place] % (Auto) 8.5 (2-11) % Eos % (Auto) 2.0 (0-4) % Baso % (Auto) 0.7 (0-2) % Lymph # (Auto) 2.7 (1.2-4.9) X10*3/uL [place] # (Auto) 1.3 H (0.1-1.2) X10*3/uL Eos # (Auto) 0.3 (0.0-0.4) X10*3/uL Baso # (Auto) 0.1 (0.0-0.2) X10*3/uL Abs Immat Gran (auto) 0.09 H (0.00-0.03) X10*3/uL Absolute Neuts (auto) 10.9 H (2.0-8.3) x10*3/uL Absolute Nucleated RBC 0.000 (0.0-0.012) X10*3/uL Nucleated RBC % (auto) 0.0 (0.0-0.2) /100WBC ESR 13 (0-20) MM/HR Sodium 141 (135-145) mmol/L Potassium 3.3 (3.3-5.1) mmol/L Chloride 110 H (96-108) mmol/L Carbon Dioxide 21 L (22-29) mmol/L Anion Gap 13 (12-20) BUN 12 (9-16) mg/dL Creatinine 0.97 (0.5-1.4) mg/dL Estim Creat Clear Calc 53.6 Estimated GFR > 60 Random Glucose 181 H (60-115) mg/dL Calcium 9.5 D (8.4-10.2) mg/dL Total Bilirubin 1.0 (0.0-1.0) mg/dL Direct Bilirubin 0.3 (0.0-0.5) mg/dL AST 19 (5-31) U/L ALT 22 (0-31) U/L Alkaline Phosphatase 67 (39-117) U/L C-Reactive Protein (< or = 0.50) mg/dL Total Protein 7.6 (6.5-8.0) g/dL Albumin 4.6 (3.5-5.0) g/dL C. difficile Tox B Gene (Negative) 01/08/23 01/08/23 Range/Units 09:45 13:14 WBC (4.8-10.8) X10*3/uL RBC (4.20-5.50) X10*6/uL Hgb (12.0-16.0) g/dl Hct (37.0-47.0) % MCV (80.0-98.0) fL MCH (27.0-33.0) pg MCHC (31.0-35.0) g/dl RDW (11.0-16.0) % Plt Count (160-400) X10*3/uL MPV (9.4-12.3) fL Immature Gran % (Auto) (0.0-0.4) % Neut % (Auto) (45-73) % Lymph % (Auto) (20-40) % [place] % (Auto) (2-11) % Eos % (Auto) (0-4) % Baso % (Auto) (0-2) % Lymph # (Auto) (1.2-4.9) X10*3/uL [place] # (Auto) (0.1-1.2) X10*3/uL Eos # (Auto) (0.0-0.4) X10*3/uL Baso # (Auto) (0.0-0.2) X10*3/uL Abs Immat Gran (auto) (0.00-0.03) X10*3/uL Absolute Neuts (auto) (2.0-8.3) x10*3/uL Absolute Nucleated RBC (0.0-0.012) X10*3/uL Nucleated RBC % (auto) (0.0-0.2) /100WBC ESR (0-20) MM/HR Sodium (135-145) mmol/L Potassium (3.3-5.1) mmol/L Chloride (96-108) mmol/L Carbon Dioxide (22-29) mmol/L Anion Gap (12-20) BUN (9-16) mg/dL Creatinine (0.5-1.4) mg/dL Estim Creat Clear Calc Estimated GFR Random Glucose (60-115) mg/dL Calcium (8.4-10.2) mg/dL Total Bilirubin (0.0-1.0) mg/dL Direct Bilirubin (0.0-0.5) mg/dL AST (5-31) U/L ALT (0-31) U/L Alkaline Phosphatase (39-117) U/L C-Reactive Protein 1.03 H (< or = 0.50) mg/dL Total Protein (6.5-8.0) g/dL Albumin (3.5-5.0) g/dL C. difficile Tox B Gene NEGATIVE (Negative) Independent Interpretation I performed an independent interpretation of an: CT Scan Interpretation: Agrees radiologist read, no evidence of colitis, do not appreciate florid appendicitis Radiology Impression Discussion of test interpretation with radiology: I discussed test interpretation with the radiologist and I have reviewed the radiologist's reading. Radiologist Impression: CT/CT abdomen pelvis w IV con IMPRESSION: *? No evidence of gastrointestinal tract obstruction. *? The appendix measures up to 0.7 cm diameter and a small amount of fluid is present in the lumen of the appendix. Note that the appendix had some intraluminal gas on prior CT exams. The thickness of the appendiceal wall is not appreciably changed compared to 05/30/2018 but is more difficult to compared to 04/12/2019 since there was mild distention of the appendix by intraluminal gas on? 05/30/2018. Although patient is presenting with periumbilical pain, the imaging findings are considered equivocal/doubtful for mild appendicitis. Since there is no overt appendicitis, consider whether clinical observation can be pursued. *? There is some liquid stool within the rectum without rectal wall thickening or perirectal fat stranding. No evidence of proctitis, acute enteritis or colitis. Although a few slightly prominent lymph nodes are seen within the mesorectal compartment have not increased in size compared to prior exams. *? Leiomyomatous uterus. *? Cavernous hemangiomas of the liver. *? 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 External Record Review External record reviewed: Outpatient record, Prior outpatient labs and Prior outpatient radiology Prescription Management I considered prescription management with: Pain Medication and Antibiotic Chronic Conditions Patient?s care impacted by: Other (Ulcerative colitis) Critical Care Time Critical Care Time Critical Care Time: No Discharge Plan Discharge Clinical Impression: Acute UTI, Norovirus Patient Disposition: Home, Self-Care Instructions: Urinary Tract Infection in Women (DC), Gastroenteritis (DC) Additional Instructions: You lab workup today was unremarkable. Your urine test from 01/05 shows an E. coli UTI Take the prescribed antibiotics for this. Do not miss any doses and complete the entire course. Your stool studies did not show bacterial infection in your colon that would require additional antibiotics. You most likely have a viral GI bug also known as gastroenteritis. Treatment is supportive care, symptoms usually resolve on their own in 48-72 hours. Recommend rest and plenty of oral hydration. Stick to a bland diet like soup and toast while you are not feeling well. Take the prescribed medication as needed for nausea. Recommend over the counter Pepto Bismol or Imodium for upset stomach and diarrhea. Follow up with your GI doctor. If you develop new or worsening symptoms call 911 or come back to the ER for further evaluation. Tu an?lisis de laboratorio de hoy no tuvo nada especial. Albarado an?lisis de orina del 01/05 muestra dylan infecci?n urinaria por E. coli Liborio Negron Torres los antibi?ticos recetados para esto. No te pierdas ninguna dosis y completa todo el curso. Hallie estudios de heces no mostraron dylan infecci?n bacteriana en albarado colon que requiera antibi?ticos adicionales. Lo m?s probable es que tenga un bicho GI viral, tambi?n conocido lakeisha gastroenteritis. El tratamiento es atenci?n de apoyo, los s?ntomas generalmente se resuelven por s? solos en 48 a 72 horas. Recomendable reposo y hugo hidrataci?n oral. Siga dylan dieta blanda lakeisha sopa y tostadas mientras no se sienta jordy. Liborio Negron Torres el medicamento recetado seg?n sea necesario para las n?useas. Recomiende Pepto Bismol o Imodium de venta [place] para el malestar estomacal y la diarrea. Rylie un seguimiento con albarado m?dico gastroenter?logo. Si desarrolla s?ntomas nuevos o que empeoran, llame al 911 o regrese a la jocy de emergencias para dylan evaluaci?n adicional. Prescriptions: New ondansetron 4 mg tablet,disintegrating 4 mg PO Q8H PRN (Reason: nausea and vomiting) 3 Days Qty: 10 0RF naproxen 500 mg tablet 500 mg PO BID PRN (Reason: pain) Qty: 20 0RF cefuroxime axetil 250 mg tablet 250 mg PO BID 7 Days Qty: 14 0RF No Action Humira(CF) Pen 40 mg/0.4 mL pen injector kit 40 mg subcut Q2W Qty: 2 6RF prednisone 20 mg tablet 20 mg PO DAILY Qty: 30 0RF dicyclomine 10 mg capsule See Rx Instructions PO QID 30 Days Qty: 120 3RF Rx Instructions: 1-2 caps PO 4 times a day; ezetimibe 10 mg tablet 10 mg PO DAILY valsartan 320 mg tablet 320 mg PO DAILY cyanocobalamin (vitamin B-12) 1,000 mcg tablet 1,000 mcg PO DAILY metformin 1,000 mg tablet 1,000 mg PO BID hydrocortisone [Ala-Olivier] 1 % cream 1 appl [place] BID PRN (Reason: skin irritation) 30 Days Qty: 28.4 3RF Rx Instructions: jPlease include rectal applicator/cone Trulicity 1.5 mg/0.5 mL pen injector subcut QWEEK mesalamine 1.2 gram tablet,delayed release (DR/EC) 4.8 g PO DAILY 30 Days Qty: 120 1RF simethicone 180 mg capsule 180 mg PO QID 30 Days Qty: 120 3RF Rx Instructions: after meals rosuvastatin 40 mg tablet 40 mg PO DAILY glimepiride 2 mg tablet 2 mg PO DAILY Referrals: [facility] [Provider Group] Stand Alone Forms: Work/School Release Print Language: Swedish
[2023-01-08 09:49] LABS: MANUAL DIFF FLAG NO
[2023-01-08 09:52] LABS: Basophils Absolute Auto 0.1 X10*3/uL (0.0-0.2); Basophils Percent Auto 0.7 % (0-2); Eosinophils Absolute Auto 0.3 X10*3/uL (0.0-0.4); Hematocrit 46.8 % (37.0-47.0); Hemoglobin 15.8 g/dl (12.0-16.0); Imm Gran Abs Auto 0.09 X10*3/uL (0.00-0.03); Imm Gran Pct Auto 0.6 % (0.0-0.4); Lymphocytes Absolute Auto 2.7 X10*3/uL (1.2-4.9); Lymphocytes Percent Auto 17.6 % (20-40); Mean Corpuscular HGB Conc 33.8 g/dl (31.0-35.0); Mean Corpuscular Hemoglobin 31.2 pg (27.0-33.0); Mean Corpuscular Volume 92.5 fL (80.0-98.0); Mean Platelet Volume 9.5 fL (9.4-12.3); Monocytes Absolute Auto 1.3 X10*3/uL (0.1-1.2); Monocytes Percent Auto 8.5 % (2-11); Neutrophils Absolute Auto 10.9 x10*3/uL (2.0-8.3); Neutrophils Percent Auto 70.6 % (45-73); Platelet Count 329 X10*3/uL (160-400); Red Blood Count 5.06 X10*6/uL (4.20-5.50); Red Cell Distribution Width 13.2 % (11.0-16.0); White Blood Count 15.4 X10*3/uL (4.8-10.8)
[2023-01-08] MEDS: 0.9 % Sodium Chloride 1,000 ML 999 ML IVCONT (09:59)
[2023-01-08] MEDS: ondansetron HCL 4 MG/2 ML VIAL IVPUSH (09:59)
[2023-01-08 10:17] LABS: C Reactive Protein 1.03 mg/dL (< or = 0.50)
[2023-01-08 10:19] LABS: Alanine Aminotransferase 22 U/L (0-31); Albumin Level 4.6 g/dL (3.5-5.0); Alkaline Phosphatase 67 U/L (39-117); Anion Gap 13 (12-20); Aspartate Amino Transferase 19 U/L (5-31); Bilirubin Direct 0.3 mg/dL (0.0-0.5); Blood Urea Nitrogen 12 mg/dL (9-16); Calcium 9.5 mg/dL (8.4-10.2); Carbon Dioxide 21 mmol/L (22-29); Chloride 110 mmol/L (96-108); Creatinine Clr Calc Pharmacy 53.6; Estimated Glomerular Filt Rate > 60; Glucose Random 181 mg/dL (60-115); Potassium 3.3 mmol/L (3.3-5.1); Sodium 141 mmol/L (135-145); Total Protein 7.6 g/dL (6.5-8.0)
[2023-01-08 10:33] LABS: Erythrocyte Sedimentation Rate 13 MM/HR (0-20)
[2023-01-08] MEDS: iohexoL 350 MG/ML 100 ML INFUS..BTL 85 ML IV (10:44)
[2023-01-08 14:27] VITALS: BP 118/67; PULSE 97; RESP 16; TEMP 36.9; O2SAT 99
[2023-01-08 14:39] LABS: CDiff Gene PCR NEGATIVE (Negative)
[2023-01-08 15:26] LABS: Adenovirus F 40/41 Not Detected (Not Detect.); Astrovirus Not Detected (Not Detect.); Campylobacter Not Detected (Not Detect.); Cryptosporidium Not Detected (Not Detect.); Cyclospora cayetanensis Not Detected (Not Detect.); E. coli EAEC Not Detected (Not Detect.); E. coli EPEC Not Detected (Not Detect.); E. coli ETEC Not Detected (Not Detect.); E. coli STEC Not Detected (Not Detect.); Entamoeba histolytica Not Detected (Not Detect.); Giardia lamblia Not Detected (Not Detect.); Plesiomonas shigelloides Not Detected (Not Detect.); Rotavirus A Not Detected (Not Detect.); Salmonella Not Detected (Not Detect.); Sapovirus Not Detected (Not Detect.); Shigella sp./EIEC Not Detected (Not Detect.); Vibrio Not Detected (Not Detect.); Vibrio Cholerae Not Detected (Not Detect.); Yersinia enterocolitica Not Detected (Not Detect.)
[2023-01-08 15:33] LABS: Norovirus GI/GII Detected (Not Detect.)
--- NOTE | 2023-01-08 15:33 | MHC.IC ---
Patient positive for Norovirus. Please wash with soap and water after ALL contact and clean ALL surfaces with bleach.
== END 2023-01-08 15:35 | disposition home or self-care (01) ==
PROVIDERS: Physician Assistant; Emergency Provider Emergency Medicine Emergency Medical Services; PCP Internal Medicine
DX: N39.0 Urinary tract infection, site not specified (principal); A08.11 Acute gastroenteropathy due to Norwalk agent; R11.2 Nausea with vomiting, unspecified; R19.7 Diarrhea, unspecified; Z20.822 Contact with and (suspected) exposure to COVID-19; Z20.828 Contact with and (suspected) exposure to other viral communicable diseases; Z79.899 Other long term (current) drug therapy
CPT/HCPCS: 36415; 74177; 80048; 80076; 85025; 85652; 86140; 87493; 87507; 96361; 96374; 99284; J2405; Q9967

== ENCOUNTER → 2023-01-15 14:47 | Outpatient (BNVA) | payer OTHER, SELFPAY | PROVIDERS: PCP Internal Medicine; Visit Provider Nurse Practitioner | DX: Z01.818 Encounter for other preprocedural examination (principal); K51.90 Ulcerative colitis, unspecified, without complications; Z83.71 Family history of colonic polyps | CPT/HCPCS: 99212 ==

== ENCOUNTER 2023-01-18 10:09 | Outpatient (REF) | payer OTHER, SELFPAY ==
[2023-01-18 11:43] LABS: Estimated Average Glucose 157 mg/dL; Hemoglobin A1c % 7.1 %
[2023-01-18 12:27] LABS: Alanine Aminotransferase 22 U/L (0-31); Albumin Level 4.4 g/dL (3.5-5.0); Alkaline Phosphatase 71 U/L (39-117); Anion Gap 17 (12-20); Aspartate Amino Transferase 23 U/L (5-31); Bilirubin Total 0.6 mg/dL (0.0-1.0); Blood Urea Nitrogen 11 mg/dL (9-16); Carbon Dioxide 21 mmol/L (22-29); Chloride 108 mmol/L (96-108); Cholesterol 231 mg/dL; Estimated Glomerular Filt Rate > 60; Glucose Random 117 mg/dL (60-115); HDL Cholesterol 45 mg/dL; Potassium 4.6 mmol/L (3.3-5.1); Sodium 141 mmol/L (135-145); Total Protein 7.4 g/dL (6.5-8.0)
[2023-01-18 17:04] LABS: LDL Cholesterol Calculated 153 mg/dl; Triglycerides 166 mg/dL
== END 2023-01-18 10:10 | disposition home or self-care (01) ==
LOC: HO.LAB 10:09
PROVIDERS: PCP Internal Medicine; Visit Provider Internal Medicine
DX: Z00.01 Encounter for general adult medical examination with abnormal findings (principal); D51.9 Vitamin B12 deficiency anemia, unspecified; E11.65 Type 2 diabetes mellitus with hyperglycemia; E78.00 Pure hypercholesterolemia, unspecified; R80.9 Proteinuria, unspecified
CPT/HCPCS: 36415; 80053; 80061; 83036

== ENCOUNTER 2023-05-02 06:06 | Outpatient (REF) | payer OTHER, SELFPAY ==
[2023-05-02 08:03] LABS: Alanine Aminotransferase 20 U/L (0-31); Albumin Level 4.1 g/dL (3.5-5.0); Alkaline Phosphatase 70 U/L (39-117); Anion Gap 13 (12-20); Aspartate Amino Transferase 23 U/L (5-31); Bilirubin Total 0.5 mg/dL (0.0-1.0); Blood Urea Nitrogen 10 mg/dL (9-16); Calcium 9.7 mg/dL (8.4-10.2); Carbon Dioxide 26 mmol/L (22-29); Chloride 107 mmol/L (96-108); Cholesterol 183 mg/dL; Estimated Glomerular Filt Rate > 60; Glucose Random 123 mg/dL (60-115); HDL Cholesterol 45 mg/dL; LDL Cholesterol Calculated 102 mg/dl; Potassium 3.6 mmol/L (3.3-5.1); Sodium 142 mmol/L (135-145); Total Protein 7.2 g/dL (6.5-8.0); Triglycerides 183 mg/dL
[2023-05-02 08:06] LABS: Estimated Average Glucose 134 mg/dL; Hemoglobin A1c % 6.3 %
== END 2023-05-02 06:07 | disposition home or self-care (01) ==
LOC: HO.LAB 06:06
PROVIDERS: PCP Internal Medicine; Visit Provider Internal Medicine
DX: E11.9 Type 2 diabetes mellitus without complications (principal); E78.00 Pure hypercholesterolemia, unspecified; M54.2 Cervicalgia
CPT/HCPCS: 36415; 80053; 80061; 83036

== ENCOUNTER 2023-08-20 15:11 | Outpatient (AMB) | payer OTHER, SELFPAY ==
--- NOTE | 2023-08-20 15:21 | A.OFFVIS_ITS ---
Intake Vital Signs 08/20/23 15:28 Height 4 ft 11 in Weight 122 lb BMI 24.6 BP 108/50 L Blood Pressure Location Lt brachial Position Sitting Pulse 91 Intake Visit Reasons: Uc - 6 Month Intake Note: Angie presents in office today as a 6 months follow up of UC. CC: She she is doing better with Humira but sometimes she stills sees blood in the stools and gets abdominal pain. Patient inquiring about next colonoscopy today. Per patient sometimes she gets a lot of gas. 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 Otherwise, she is doing very well on her Humira and is maintained on her 40mg q2week doses. I think we should get her next colonoscopy ordered since she would be due in 2023 and we are booking so far out - also would be good for disease evaluation now that we have stabilized it on Humira. There are no prior problems with anesthesia or sedation. She denies any cardiac or respiratory problems. No ID problems. Rov 6 mos and after colonoscopy (2) Ulcerative colitis: Comment: Ulcer proctitis Code(s): K51.90 - Ulcerative colitis, unspecified, without complications (3) Pre-op examination: Code(s): Z01.818 - Encounter for other preprocedural examination Medications: Refilled adalimumab (Humira (CF) Pen) 40 mg (0.4 mL) sub cut Q2W 2 ea 6RF K51.90 - Ulcerativ e colitis, unspeci fied, without comp lications Discontinued dicyclomine Dis continued Reason: Doctor's Order 1-2 caps PO 4 jeffery es a day; 30 days 120 caps 3RF K64.9 - Unspecifie d hemorrhoids, R10 .9 - Unspecified a bdominal pain simethicone aft er meals Discon tinued Reason: Do ctor's Order 180 mg PO QID 30 days 120 caps 3RF mesalamine Disc ontinued Reason: Doctor's Order 4.8 grams (4 x 1.2 gram) PO DAILY 30 days 120 tabs 1RF K51.90 - Ulcerativ e colitis, unspeci fied, without comp lications prednisone Disc ontinued Reason: Doctor's Order 20 mg PO DAILY 30 tabs 0RF K51.90 - Ulcerativ e colitis, unspeci fied, without comp lications Laboratory Tests 01/08/23 08/20/23 08/30/23 09:45 16:04 10:01 WBC 15.4 H Hgb 15.8 Hct 46.8 Plt Count 329 Estimated GFR > 60 Total Bilirubin 0.5 AST 19 ALT 16 Alkaline Phosphata se 72 C-Reactive Protein 0.31 TSH 1.38 OLD RECORD REVIEW Diagnoses from her past medical history pulled over from [facility] COLONOSCOPPY BIOPSY TODAYS VISIT [place] [facility] She is not having pain in the abd, but she still has diarrhea 1-2 times a week and RB 1-2 times a month. She still has episodes of tenesmus and bowel urgency with near incontinence. She is adherent to her Humira, so we may need to go to a different medication for UC. She is due for scope, last was in 2019. Will order. There are no prior problems with anesthesia or sedation. She has history of a left bundle branch block but no unstable cardiac conditions and denies any respiratory problems. There are no infectious disease problems. She has lost some weight, about 25 lbs......BUT she also was started on Trulicity. This could be causing diarrhea, too. WIll see what the fecal calprotectin and CRP shows. rov 5 WEEKS. [facility] Medical History (Updated 10/03/23 @ 09:51 by RUPERT Parker) Focal nodular hyperplasia of liver High cholesterol Left bundle branch block Dermoid cyst Uterine fibroid Anemia Renal arterial aneurysm Hypertension Nephrolithiasis PCOS (polycystic ovarian syndrome) Surgical History Hx of colonoscopy Hx of section Family History Father No problems noted. Mother Breast cancer Social History Alcohol intake: current Alcohol intake frequency: does not drink Review of Systems Const Denies fatigue, Denies fever(s), Denies night sweats, Denies poor appetite and Reports weight loss ENT Reports Normal hearing present, Denies dental pain, Denies dysphagia, Denies hearing loss, Denies mouth pain, Denies odynophagia, Denies throat swelling, Denies tongue swelling and Reports other (Dentition adequate) Card Reports no additional complaints Resp Reports no additional complaints GI Reports abdominal pain, Denies melena, Denies bloating, Denies hematochezia, Denies constipation, Reports GI cramping, Denies dysphagia, Denies excessive flatus, Denies early satiety, Reports dyspepsia, Denies heartburn, Reports fecal incontinence, Denies diarrhea, Reports loose stools, Denies nausea, Denies odynophagia, Denies vomiting and Denies hematemesis Skin/Breast Denies pruritus, Denies lesions, Denies rash and Denies jaundice Neuro Reports Normal hearing present and Denies Abnormal speech present Endo Denies fatigue Aller/Immun Denies throat swelling and Denies tongue swelling Physical Exam Vital Signs: Last Vital Signs Pulse 91 08/20/23 15:28 BP 108/50 L 08/20/23 15:28 BMI result Body Mass Index 24.6 Const General: cooperative, no acute distress, well developed and well groomed Nutritional Appearance: average body habitus and well nourished Orientation/consciousness: oriented to person, oriented to place and oriented to time Limitations: language barrier HEENT Head: Yes normocephalic and Yes atraumatic Eyes General: appearance normal, both eyes and all related structures Pupils: Equal, round and reactive pupils present Neck Neck: Yes normal visual inspection and Yes no lymphadenopathy Thyroid: Thyroid normal Resp Effort & Inspection: normal respiratory effort and able to speak in complete sentences Auscultation: clear to auscultation bilaterally Cardio Rate: regular rate Rhythm: regular rhythm Heart sounds: Normal, physiologic split S2 sound present Peripheral pulses: radial pulses present and posterior tibial pulses present GI Inspection: No distended and No Abdominal panniculus present Palpation (GI): Soft to palpation, nontender, no guarding, not rigid and No hepatosplenomegaly present Percussion: Yes normal to percussion Auscultation: Hyperactive bowel sounds present Rectal Exam - Female: deferred Skin General skin exam: no rashes or lesions noted, turgor normal, skin not dry, no jaundice, No spider nevi and no striae Rashes: no rashes Nails: normal Neuro General: oriented to person, oriented to place and oriented to time Cranial nerves: Yes Equal, round and reactive pupils present and Yes Normal hearing present Speech: No Abnormal speech present Extrem General: Yes normal to inspection, No clubbing, No cyanosis and No edema Psych Appearance: grossly normal and well kempt Mental Status: mental status grossly normal Speech and movement: Normal speech and movement present Affect: normal affect Attitude: cooperative Thought process: Normal thought process present and not confabulating Thought content: Normal thought content present Insight: Limited insight present (Psych) Judgement: Limited judgement present (Psych) Results Reviewed Results Reviewed: Laboratory Tests 01/08/23 08/20/23 08/30/23 09:45 16:04 10:01 WBC 15.4 H Hgb 15.8 Hct 46.8 Plt Count 329 Estimated GFR > 60 Total Bilirubin 0.5 AST 19 ALT 16 Alkaline Phosphatase 72 C-Reactive Protein 0.31 TSH 1.38 Assessment & Plan Assessment & Plan (1) Ulcerative colitis: Comment: Ulcer proctitis Code(s): K51.90 - Ulcerative colitis, unspecified, without complications (2) Family history of polyps in the colon: Comment: 2019 scope negative repeat in 5 years Code(s): Z83.71 - Family history of colonic polyps (3) Pre-op examination: Code(s): Z01.818 - Encounter for other preprocedural examination (4) Rectal bleeding: Code(s): K62.5 - Hemorrhage of anus and rectum (5) Diabetes: Code(s): E11.9 - Type 2 diabetes mellitus without complications Plan COLONOSCOPPY BIOPSY TODAYS VISIT [place] [facility] She is not having pain in the abd, but she still has diarrhea 1-2 times a week and RB 1-2 times a month. She still has episodes of tenesmus and bowel urgency with near incontinence. She is adherent to her Humira, so we may need to go to a different medication for UC. She is due for scope, last was in 2019. WIll order. There are no prior problems with anesthesia or sedation. She has history of a left bundle branch block but no unstable cardiac conditions and denies any respiratory problems. There are no infectious disease problems. She has lost some weight, about 25 lbs......BUT she also was started on Trulicity. This could be causing diarrhea, too. Will see what the fecal calprotectin and CRP shows. rov 5 WEEKS. Orders: Orders Colonoscopy - GI Use Only 08/20/23 K51.90 - Ulcerative colitis, unspecified, without complications, Z83.71 - Family history of colonic polyps, Z01.818 - Encounter for other preprocedural examination C Reactive Protein 08/20/23 K51.90 - Ulcerative colitis, unspecified, without complications, Z83.71 - Family history of colonic polyps, Z01.818 - Encounter for other preprocedural examination Comprehensive Met. Panel 08/20/23 K51.90 - Ulcerative colitis, unspecified, without complications, Z01.818 - Encounter for other preprocedural examination, K62.5 - Hemorrhage of anus and rectum Complete Blood Count Auto Diff 08/20/23 K51.90 - Ulcerative colitis, unspecified, without complications, Z01.818 - Encounter for other preprocedural examination, K62.5 - Hemorrhage of anus and rectum Medications: New sodium,potassium,mag sulfates 17.5-3.13-1.6 gram (Suprep Bowel Prep Kit) 480 mL orally; 354 mL 0RF Refilled adalimumab (Humira(CF) Pen) 40 mg (0.4 mL) subcut Q2W 2 ea 6RF K51.90 - Ulcerative colitis, unspecified, without complications Coding Level of Care Code Est Pt Level 4 (70942) Diagnoses Ulcerative colitis K51.90 Family history of polyps in the colon Z83.71 Pre-op examination Z01.818 Rectal bleeding K62.5 Diabetes E11.9
[2023-08-20 15:28] VITALS: BP 108/50; PULSE 91; BMI 24.6
== END 2023-08-20 15:51 | disposition home or self-care (01) ==
PROVIDERS: PCP Internal Medicine; Visit Provider Nurse Practitioner
DX: K51.90 Ulcerative colitis, unspecified, without complications (principal); Z83.71 Family history of colonic polyps; Z01.818 Encounter for other preprocedural examination; K62.5 Hemorrhage of anus and rectum; E11.9 Type 2 diabetes mellitus without complications
CPT/HCPCS: 99214

== ENCOUNTER 2023-08-20 15:11 | Outpatient (REF) | payer OTHER, SELFPAY ==
[2023-08-20 16:05] LABS: MANUAL DIFF FLAG NO
[2023-08-20 17:37] LABS: Basophils Absolute Auto 0.2 X10*3/uL (0.0-0.2); Basophils Percent Auto 2.1 % (0-2); Eosinophils Absolute Auto 0.4 X10*3/uL (0.0-0.4); Hematocrit 42.2 % (37.0-47.0); Hemoglobin 14.2 g/dl (12.0-16.0); Imm Gran Abs Auto 0.03 X10*3/uL (0.00-0.03); Imm Gran Pct Auto 0.4 % (0.0-0.4); Lymphocytes Absolute Auto 3.4 X10*3/uL (1.2-4.9); Lymphocytes Percent Auto 43.8 % (20-40); Mean Corpuscular HGB Conc 33.6 g/dl (31.0-35.0); Mean Corpuscular Hemoglobin 31.4 pg (27.0-33.0); Mean Corpuscular Volume 93.4 fL (80.0-98.0); Mean Platelet Volume 9.9 fL (9.4-12.3); Monocytes Absolute Auto 0.8 X10*3/uL (0.1-1.2); Monocytes Percent Auto 9.9 % (2-11); Neutrophils Percent Auto 38.8 % (45-73); Platelet Count 323 X10*3/uL (160-400); Red Blood Count 4.52 X10*6/uL (4.20-5.50); Red Cell Distribution Width 12.5 % (11.0-16.0); White Blood Count 7.7 X10*3/uL (4.8-10.8)
[2023-08-20 17:53] LABS: Alanine Aminotransferase 16 U/L (0-31); Albumin Level 4.2 g/dL (3.5-5.0); Alkaline Phosphatase 72 U/L (39-117); Aspartate Amino Transferase 19 U/L (5-31); Bilirubin Total 0.5 mg/dL (0.0-1.0); Blood Urea Nitrogen 10 mg/dL (9-16); C Reactive Protein 0.31 mg/dL (< or = 0.50); Calcium 9.8 mg/dL (8.4-10.2); Chloride 105 mmol/L (96-108); Estimated Glomerular Filt Rate > 60; Glucose Random 120 mg/dL (60-115); Potassium 4.3 mmol/L (3.3-5.1); Sodium 140 mmol/L (135-145); Total Protein 7.6 g/dL (6.5-8.0)
[2023-08-20 17:58] LABS: Carbon Dioxide 26 mmol/L (22-29)
== END 2023-08-20 15:12 | disposition home or self-care (01) ==
LOC: HO.LAB 15:11
PROVIDERS: PCP Internal Medicine; Visit Provider Nurse Practitioner
DX: Z01.818 Encounter for other preprocedural examination (principal); K51.90 Ulcerative colitis, unspecified, without complications; K62.5 Hemorrhage of anus and rectum; E11.9 Type 2 diabetes mellitus without complications
CPT/HCPCS: 36415; 80053; 85025; 86140; 99212

== ENCOUNTER 2023-08-21 | Outpatient (REF) | payer OTHER, SELFPAY ==
[2023-08-25 22:33] LABS: Calprotectin, Fecal 955 mcg/g
== END 2023-08-21 00:01 | disposition home or self-care (01) ==
LOC: HO.LNP
PROVIDERS: Visit Provider Nurse Practitioner
DX: Z01.818 Encounter for other preprocedural examination (principal); K51.90 Ulcerative colitis, unspecified, without complications; Z83.719 Family history of colon polyps, unspecified
CPT/HCPCS: 83993

== ENCOUNTER 2023-08-30 09:52 | Outpatient (REF) | payer SELFPAY ==
[2023-08-30 10:28] LABS: Estimated Average Glucose 151 mg/dL; Hemoglobin A1c % 6.9 % (<6.0)
[2023-08-30 10:39] LABS: Alanine Aminotransferase 16 U/L (0-31); Albumin Level 4.2 g/dL (3.5-5.0); Alkaline Phosphatase 68 U/L (39-117); Anion Gap 11 (12-20); Aspartate Amino Transferase 19 U/L (5-31); Bilirubin Total 0.7 mg/dL (0.0-1.0); Blood Urea Nitrogen 10 mg/dL (9-16); Calcium 9.8 mg/dL (8.4-10.2); Carbon Dioxide 25 mmol/L (22-29); Chloride 110 mmol/L (96-108); Estimated Glomerular Filt Rate > 60; Glucose Random 103 mg/dL (60-115); Potassium 4.1 mmol/L (3.3-5.1); Sodium 142 mmol/L (135-145); Total Protein 7.4 g/dL (6.5-8.0)
[2023-08-30 10:53] LABS: Thyroid Stimulating Hormone 1.38 uIU/mL (0.32-4.0)
== END 2023-08-30 09:53 | disposition home or self-care (01) ==
LOC: HO.LAB 09:52
PROVIDERS: PCP Internal Medicine; Visit Provider Internal Medicine
DX: E11.9 Type 2 diabetes mellitus without complications (principal); E78.00 Pure hypercholesterolemia, unspecified; G56.03 Carpal tunnel syndrome, bilateral upper limbs
CPT/HCPCS: 36415; 80053; 83036; 84443

== ENCOUNTER 2023-09-25 15:59 | Outpatient (AMB) | payer OTHER, SELFPAY ==
[2023-09-25 16:03] VITALS: BP 121/60; PULSE 87; BMI 25.0
--- NOTE | 2023-09-25 16:03 | A.OFFVIS_ITS ---
Intake Vital Signs 09/25/23 16:03 Height 4 ft 11 in Weight 123 lb 14.397 oz BMI 25.0 BP 121/60 Blood Pressure Location Lt brachial Position Sitting Pulse 87 Intake Visit Reasons: 5 week follow up Intake Note: Patient presents to in office visit today in follow up of labs and UC. CC: Patient states that she was doing better after starting Carmen but lately she has been having more abdominal pain, diarrhea, and bloating. 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 She still has episodes of tenesmus and bowel urgency with near incontinence. She is adherent to her Humira, so we may need to go to a different medication for UC. She is due for scope, last was in 2019. Will order. She has lost some weight, about 25 lbs......BUT she also was started on Trulicity. This could be causing diarrhea, too. Will see what the fecal calprotectin and CRP shows. rov 5 WEEKS. Assessment & Plan (1) Ulcerative colitis: Comment: Ulcer proctitis Code(s): K51.90 - Ulcerative colitis, unspecified, without complications (2) Family history of polyps in the colo n: Comment: 2019 scope negative repeat in 5 years Code(s): Z83.71 - Family history of colonic polyps (3) Pre-op examination: Code(s): Z01.818 - Encounter for other preprocedural examination (4) Rectal bleeding: Code(s): K62.5 - Hemorrhage of anus and rectum (5) Diabetes: Code(s): E11.9 - Type 2 diabetes mellitus without complications Orders: Orders Colonoscopy - GI U se Only Today K51.90 - Ulcerativ e colitis, unspeci fied, without comp lications, Z01.818 - Encounter for o ther preprocedural examination, Z83. 71 - Family histor y of colonic polyp s C Reactive Protein Today K51.90 - Ulcerativ e colitis, unspeci fied, without comp lications, Z01.818 - Encounter for o ther preprocedural examination, Z83. 71 - Family histor y of colonic polyp s Calprotectin, Feca l Today K51.90 - Ulcerativ e colitis, unspeci fied, without comp lications, Z01.818 - Encounter for o ther preprocedural examination, Z83. 71 - Family histor y of colonic polyp s Comprehensive Met. Panel Today K51.90 - Ulcerativ e colitis, unspeci fied, without comp lications, K62.5 - Hemorrhage of niesha s and rectum, Z01. 818 - Encounter fo r other preprocedu ral examination Complete Blood Cou nt Auto Diff Today K51.90 - Ulcerativ e colitis, unspeci fied, without comp lications, K62.5 - Hemorrhage of niesha s and rectum, Z01. 818 - Encounter fo r other preprocedu ral examination Medications: New sodium,potassium,m ag sulfates 17.5-3 .13-1.6 gram (Supr ep Bowel Prep Kit) 480 mL orally; 35 4 mL 0RF Refilled adalimumab (Humira (CF) Pen) 40 mg (0.4 mL) sub cut Q2W 2 ea 6RF K51.90 - Ulcerativ e colitis, unspeci fied, without comp lications LABS: Laboratory Tests 01/08/23 08/20/23 08/21/23 09:45 16:04 14:25 WBC 7.7 Hgb 14.2 Hct 42.2 Plt Count 323 Estimated GFR Hemoglobin A1c % Total Bilirubin Direct Bilirubin 0.3 AST ALT Alkaline Phosphata se TSH Stool Calprotectin 955 H 08/30/23 08/30/23 10:01 10:01 WBC Hgb Hct Plt Count Estimated GFR > 60 Hemoglobin A1c % 6.9 H Total Bilirubin 0.7 Direct Bilirubin AST 19 ALT 16 Alkaline Phosphata se 68 TSH 1.38 Stool Calprotectin COLONOSCOPY BIOPSY TODAY'S VISIT [place] [facility] She has been having very upset stomach and a lot of pain. She continues on her Humira and her budesonide so I really think we need to move her along to a more specific treatment for her ulcerative colitis particularly given the elevated stool calprotectin, such as Stelara. We will see what we can get approved by her insurance. She has new insurance and this has prevented booking of the colonoscopy. I ask for a copy of her most recent card. ROV 2 weeks. [facility] Medical History (Updated 10/03/23 @ 09:51 by RUPERT Parker) Focal nodular hyperplasia of liver High cholesterol Left bundle branch block Dermoid cyst Uterine fibroid Anemia Renal arterial aneurysm Hypertension Nephrolithiasis PCOS (polycystic ovarian syndrome) Surgical History Hx of colonoscopy Hx of section Family History Father No problems noted. Mother Breast cancer Social History Alcohol intake: current Alcohol intake frequency: does not drink Review of Systems Const Denies fatigue, Denies fever(s), Denies night sweats, Denies poor appetite and Denies weight loss ENT Reports Normal hearing present, Denies dental pain, Denies dysphagia, Denies hearing loss, Denies mouth pain, Denies odynophagia, Denies throat swelling, Denies tongue swelling and Reports other (Dentition adequate) Card Reports no additional complaints Resp Reports no additional complaints GI Reports abdominal pain, Denies melena, Denies bloating, Denies hematochezia, Denies constipation, Reports GI cramping, Denies dysphagia, Denies excessive flatus, Denies early satiety, Denies heartburn, Reports diarrhea, Denies nausea, Denies odynophagia, Denies vomiting and Denies hematemesis Skin/Breast Denies pruritus, Denies lesions, Denies rash and Denies jaundice Neuro Reports Normal hearing present and Denies Abnormal speech present Endo Denies fatigue Aller/Immun Denies throat swelling and Denies tongue swelling Physical Exam Vital Signs: Last Vital Signs Pulse 87 09/25/23 16:03 BP 121/60 09/25/23 16:03 BMI result Body Mass Index 25.0 Const General: cooperative, no acute distress, well developed and well groomed Nutritional Appearance: average body habitus and well nourished Orientation/consciousness: oriented to person, oriented to place and oriented to time Limitations: language barrier HEENT Head: Yes normocephalic and Yes atraumatic Eyes General: appearance normal, both eyes and all related structures Pupils: Equal, round and reactive pupils present Neck Neck: Yes normal visual inspection and Yes no lymphadenopathy Thyroid: Thyroid normal Resp Effort & Inspection: normal respiratory effort and able to speak in complete sentences Auscultation: clear to auscultation bilaterally Cardio Rate: regular rate Rhythm: regular rhythm Heart sounds: Normal, physiologic split S2 sound present Peripheral pulses: radial pulses present and posterior tibial pulses present GI Inspection: No distended and No Abdominal panniculus present Palpation (GI): Soft to palpation, Tenderness to palpation present (GI) in the LLQ and periumbilically, no guarding, not rigid and No hepatosplenomegaly present Percussion: Yes normal to percussion Auscultation: normal bowel sounds Rectal Exam - Female: deferred Skin General skin exam: no rashes or lesions noted, turgor normal, skin not dry, no jaundice, No spider nevi and no striae Rashes: no rashes Nails: normal Neuro General: oriented to person, oriented to place and oriented to time Cranial nerves: Yes Equal, round and reactive pupils present and Yes Normal hearing present Speech: No Abnormal speech present Extrem General: Yes normal to inspection, No clubbing, No cyanosis and No edema Psych Appearance: grossly normal and well kempt Mental Status: mental status grossly normal Speech and movement: Normal speech and movement present Affect: normal affect Attitude: cooperative Thought process: Normal thought process present and not confabulating Thought content: Normal thought content present Insight: Fair insight present (Psych) Judgement: Fair judgement present (Psych) Results Reviewed Results Reviewed: Laboratory Tests 01/08/23 08/20/23 08/21/23 09:45 16:04 14:25 WBC 7.7 Hgb 14.2 Hct 42.2 Plt Count 323 Estimated GFR Hemoglobin A1c % Total Bilirubin Direct Bilirubin 0.3 AST ALT Alkaline Phosphatase TSH Stool Calprotectin 955 H 12/09/23 12/09/23 10:01 10:01 WBC Hgb Hct Plt Count Estimated GFR > 60 Hemoglobin A1c % 6.9 H Total Bilirubin 0.7 Direct Bilirubin AST 19 ALT 16 Alkaline Phosphatase 68 TSH 1.38 Stool Calprotectin Assessment & Plan Assessment & Plan (1) Ulcerative colitis: Comment: Ulcer proctitis Code(s): K51.90 - Ulcerative colitis, unspecified, without complications Plan COLONOSCOPY BIOPSY TODAY'S VISIT [place] [facility] She has been having very upset stomach and a lot of pain. She continues on her Humira and her budesonide so I really think we need to move her along to a more specific treatment for her ulcerative colitis particularly given the elevated stool calprotectin, such as Stelara. We will see what we can get approved by her insurance. She has new insurance and this has prevented booking of the colonoscopy. I ask for a copy of her most recent card. ROV 2 weeks. Medications: New budesonide ER 9 mg (3 x 3 mg) PO QAM 90 ea 3RF K51.90 - Ulcerative colitis, unspecified, without complications budesonide ER 9 mg (3 x 3 mg) PO QAM 90 ea 3RF K51.90 - Ulcerative colitis, unspecified, without complications Coding Level of Care Code Est Pt Level 3 (14360) Diagnoses Ulcerative colitis K51.90
== END 2023-09-25 16:27 | disposition home or self-care (01) ==
PROVIDERS: PCP Internal Medicine; Visit Provider Nurse Practitioner
DX: K51.90 Ulcerative colitis, unspecified, without complications (principal)
CPT/HCPCS: 99213

== ENCOUNTER → 2023-09-25 15:59 | Outpatient (BNVA) | payer SELFPAY | PROVIDERS: PCP Internal Medicine; Visit Provider Nurse Practitioner | DX: K51.90 Ulcerative colitis, unspecified, without complications (principal) | CPT/HCPCS: 99212 ==

== ENCOUNTER 2023-10-15 15:54 | Outpatient (AMB) | payer OTHER, SELFPAY ==
[2023-10-15 16:04] VITALS: BP 116/56; PULSE 91; BMI 24.9
--- NOTE | 2023-10-15 16:04 | MHC.OFFVIS ---
Intake Vital Signs 10/15/23 16:04 Height 4 ft 11 in Weight 123 lb 7.342 oz BMI 24.9 BP 116/56 L Blood Pressure Location Lt brachial Position Sitting Pulse 91 Intake Visit Reasons: 2 week f/u UC Intake Note: Patient presents to in office visit today in follow up of UC. CC: Patient states that she has been doing a little bit better than when she came last time with Budesonide. She states she has some good days and some bad days. Regional Driver Required: Yes Accompanied by: Self / Same As Patient Allergies No Known Allergies [No Known Allergies*] Allergy (Verified 10/15/23 16:08) HPI 2 week f/u UC HPI Details Assessment & Plan (1) Ulcerative colitis: Comment: Ulcer proctitis Code(s): K51.90 - Ulcerative colitis, unspecified, without complications Plan She has been having very upset stomach and a lot of pain. She continues on her Humira and her budesonide so I really think we need to move her along to a more specific treatment for her ulcerative colitis particularly given the elevated stool calprotectin, such as Stelara. We will see what we can get approved by her insurance. She has new insurance and this has prevented booking of the colonoscopy. I ask for a copy of her most recent card. ROV 2 weeks. Medications: New budesonide ER 9 mg (3 x 3 mg) PO QAM 90 ea 3RF K51.90 - Ulcerativ e colitis, unspeci fied, without comp lications budesonide ER 9 mg (3 x 3 mg) PO QAM 90 ea 3RF K51.90 - Ulcerativ e colitis, unspeci fied, without comp lications COLONOSCOPY BIOPSY TODAY'S VISIT Citizen [place]. She has not heard re: scope yet, I try walking her to the schedulers but they are gone for the day. I will send them a note and try to continue to follow-up with this since she did give them the insurance card at the last visit. Trying to get stelara still in [place]. there may have been a glitch in entering the order that caused Humira to be sent instead again but she has not responded adequately to this. She continues to have more bad days than good with severe cramping, fatigue, and diarrhea. This despite being on 3 budesonide a day along with her Humira. Adding prednisone 20mg to budesinide 3 day and will titrate as she goes back and forth between good and bad days. ROV 2 weeks. [facility] Medical History (Updated 10/15/23 @ 16:12 by RUPERT Parker) Pre-op examination Focal nodular hyperplasia of liver High cholesterol Left bundle branch block Dermoid cyst Uterine fibroid Anemia Renal arterial aneurysm Hypertension Nephrolithiasis PCOS (polycystic ovarian syndrome) Surgical History Hx of colonoscopy Hx of section Family History Father No problems noted. Mother Breast cancer Social History Alcohol intake: current Alcohol intake frequency: does not drink Review of Systems Const Denies fatigue, Denies fever(s), Denies night sweats, Denies poor appetite and Denies weight loss ENT Reports Normal hearing present, Denies dental pain, Denies dysphagia, Denies hearing loss, Denies mouth pain, Denies odynophagia, Denies throat swelling, Denies tongue swelling and Reports other (Dentition adequate) Card Reports no additional complaints Resp Reports no additional complaints GI Denies abdominal pain, Denies melena, Denies bloating, Denies hematochezia, Denies constipation, Reports GI cramping, Denies dysphagia, Denies excessive flatus, Denies early satiety, Denies heartburn, Reports diarrhea, Denies nausea, Denies odynophagia, Denies vomiting and Denies hematemesis Skin/Breast Denies pruritus, Denies lesions, Denies rash and Denies jaundice Neuro Reports Normal hearing present and Denies Abnormal speech present Endo Denies fatigue Aller/Immun Denies throat swelling and Denies tongue swelling Physical Exam Vital Signs: Last Vital Signs Pulse 91 10/15/23 16:04 BP 116/56 L 10/15/23 16:04 BMI result Body Mass Index 24.9 Const General: cooperative, no acute distress, well developed and well groomed Nutritional Appearance: average body habitus and well nourished Orientation/consciousness: oriented to person, oriented to place and oriented to time Limitations: language barrier HEENT Head: Yes normocephalic and Yes atraumatic Eyes General: appearance normal, both eyes and all related structures Pupils: Equal, round and reactive pupils present Neck Neck: Yes normal visual inspection and Yes no lymphadenopathy Thyroid: Thyroid normal Resp Effort & Inspection: normal respiratory effort and able to speak in complete sentences Auscultation: clear to auscultation bilaterally Cardio Rate: regular rate Rhythm: regular rhythm Heart sounds: Normal, physiologic split S2 sound present Peripheral pulses: radial pulses present and posterior tibial pulses present GI Inspection: No distended and No Abdominal panniculus present Palpation (GI): Soft to palpation, nontender, no guarding, not rigid and No hepatosplenomegaly present Percussion: Yes normal to percussion Auscultation: Hyperactive bowel sounds present Rectal Exam - Female: deferred Skin General skin exam: no rashes or lesions noted, turgor normal, skin not dry, no jaundice, No spider nevi and no striae Rashes: no rashes Nails: normal Neuro General: oriented to person, oriented to place and oriented to time Cranial nerves: Yes Equal, round and reactive pupils present and Yes Normal hearing present Speech: No Abnormal speech present Extrem General: Yes normal to inspection, No clubbing, No cyanosis and No edema Psych Appearance: grossly normal and well kempt Mental Status: mental status grossly normal Speech and movement: Normal speech and movement present Affect: normal affect Attitude: cooperative Thought process: Normal thought process present and not confabulating Thought content: Normal thought content present Insight: Fair insight present (Psych) Judgement: Fair judgement present (Psych) Assessment & Plan Assessment & Plan (1) Ulcerative colitis: Comment: Ulcer proctitis Code(s): K51.90 - Ulcerative colitis, unspecified, without complications (2) Family history of polyps in the colon: Comment: 2019 scope negative repeat in 5 years Code(s): Z83.71 - Family history of colonic polyps Plan [place]. She has not heard re: scope yet, I try walking her to the schedulers but they are gone for the day. I will send them a note and try to continue to follow-up with this since she did give them the insurance card at the last visit. Trying to get jairon still in [place]. there may have been a glitch in entering the order that caused Elvia to be sent instead again but she has not responded adequately to this. She continues to have more bad days than good with severe cramping, fatigue, and diarrhea. This despite being on 3 budesonide a day along with her Humira. This combined with the fact that her fecal calprotectin continues to be elevated shows me she is having inadequate control. Adding prednisone 20mg to budesinide 3 day and will titrate as she goes back and forth between good and bad days. I also advised her to make sure she is up-to-date with her COVID vaccinations, flu vaccinations and RSV vaccinations to protect her in her immunocompromised state. ROV 2 weeks. Medications: New ustekinumab (Stelara) 90 mg subcut Q8W 1 mL 0RF prednisone 20 mg PO DAILY 30 tabs 6RF K51.90 - Ulcerative colitis, unspecified, without complications ustekinumab (Stelara) 390 mg (78 mL) IV ONCE 26 mL 0RF K51.90 - Ulcerative colitis, unspecified, without complications Coding Level of Care Code Est Pt Level 3 (62479) Diagnoses Ulcerative colitis K51.90 Family history of polyps in the colon Z83.71
== END 2023-10-15 16:44 | disposition home or self-care (01) ==
PROVIDERS: PCP Internal Medicine; Visit Provider Nurse Practitioner
DX: K51.90 Ulcerative colitis, unspecified, without complications (principal); Z83.71 Family history of colonic polyps
CPT/HCPCS: 99213

== ENCOUNTER → 2023-10-15 15:54 | Outpatient (BNVA) | payer OTHER, SELFPAY | PROVIDERS: PCP Internal Medicine; Visit Provider Nurse Practitioner ==

== ENCOUNTER 2023-11-12 15:35 | Outpatient (REF) | payer OTHER, SELFPAY | END 2023-11-12 15:36 | disposition home or self-care (01) | LOC: HO.MAMMO 15:35 | PROVIDERS: PCP Internal Medicine; Visit Provider Internal Medicine | DX: Z12.31 Encounter for screening mammogram for malignant neoplasm of breast (principal) | CPT/HCPCS: 77063; 77067 ==

== ENCOUNTER → 2023-11-12 15:45 | Outpatient (BNV) | payer OTHER, SELFPAY | PROVIDERS: PCP Internal Medicine; Visit Provider Radiology Diagnostic Radiology | DX: Z12.31 Encounter for screening mammogram for malignant neoplasm of breast (principal) | CPT/HCPCS: 77063; 77067 ==

== ENCOUNTER 2023-12-01 15:13 | Outpatient (REF) | payer OTHER, SELFPAY ==
[2023-12-01 15:19] VITALS: BP 117/64; PULSE 110; RESP 16; TEMP 36.7; O2SAT 100; BMI 24.8
--- NOTE | 2023-12-01 15:29 | HO.INF ---
15:30pm lab in - blood drawn
[2023-12-01 15:35] LABS: MANUAL DIFF FLAG NO
[2023-12-01 15:46] LABS: Basophils Absolute Auto 0.1 X10*3/uL (0.0-0.2); Basophils Percent Auto 0.4 % (0-2); Hematocrit 44.3 % (37.0-47.0); Imm Gran Abs Auto 0.13 X10*3/uL (0.00-0.03); Imm Gran Pct Auto 0.9 % (0.0-0.4); Lymphocytes Absolute Auto 2.4 X10*3/uL (1.2-4.9); Lymphocytes Percent Auto 16.9 % (20-40); Mean Corpuscular HGB Conc 33.9 g/dl (31.0-35.0); Mean Corpuscular Hemoglobin 31.2 pg (27.0-33.0); Mean Corpuscular Volume 92.1 fL (80.0-98.0); Mean Platelet Volume 9.5 fL (9.4-12.3); Monocytes Absolute Auto 0.5 X10*3/uL (0.1-1.2); Monocytes Percent Auto 3.4 % (2-11); Neutrophils Absolute Auto 11.2 x10*3/uL (2.0-8.3); Neutrophils Percent Auto 78.4 % (45-73); Platelet Count 319 X10*3/uL (160-400); Red Blood Count 4.81 X10*6/uL (4.20-5.50); Red Cell Distribution Width 12.6 % (11.0-16.0); White Blood Count 14.3 X10*3/uL (4.8-10.8)
[2023-12-01 15:57] LABS: Anion Gap 13 (12-20); Blood Urea Nitrogen 12 mg/dL (9-16); C Reactive Protein 0.63 mg/dL (< or = 0.50); Calcium 10.1 mg/dL (8.4-10.2); Carbon Dioxide 26 mmol/L (22-29); Chloride 105 mmol/L (96-108); Estimated Glomerular Filt Rate > 60; Glucose Random 217 mg/dL (60-115); Potassium 4.2 mmol/L (3.3-5.1); Sodium 140 mmol/L (135-145)
--- NOTE | 2023-12-01 16:13 | PC.NURSE ---
Patient arrived in pacu, report from [facility] initial vitals completed awaiting medication delivery from pharmacy, which arrived around 16:10. Safety checks completed, med provided as per order.
[2023-12-01 16:46] VITALS: BP 104/54; PULSE 104; RESP 16; TEMP 36.7; O2SAT 96
[2023-12-01 17:25] VITALS: BP 103/53; PULSE 106; RESP 16; TEMP 36.6; O2SAT 97
[2023-12-03 19:43] LABS: TS Negative Control Passed; TS Panel A 0; TS Panel B 0; TS Positive Control Passed; TSpotTB Negative (Negative)
== END 2023-12-01 15:14 | disposition home or self-care (01) ==
LOC: HO.MDS 15:13
PROVIDERS: Visit Provider Nurse Practitioner
DX: Z11.1 Encounter for screening for respiratory tuberculosis (principal); K51.90 Ulcerative colitis, unspecified, without complications
CPT/HCPCS: 36415; 80048; 85025; 86140; 86481; 96372; J3358

== ENCOUNTER 2023-12-19 11:14 | Outpatient (REF) | payer OTHER, SELFPAY ==
[2023-12-19 11:31] LABS: MANUAL DIFF FLAG NO
[2023-12-19 12:28] LABS: Basophils Absolute Auto 0.1 X10*3/uL (0.0-0.2); Basophils Percent Auto 1.3 % (0-2); Eosinophils Absolute Auto 0.1 X10*3/uL (0.0-0.4); Eosinophils Percent Auto 1.3 % (0-4); Hematocrit 44.4 % (37.0-47.0); Imm Gran Pct Auto 1.1 % (0.0-0.4); Lymphocytes Absolute Auto 3.9 X10*3/uL (1.2-4.9); Lymphocytes Percent Auto 40.8 % (20-40); Mean Corpuscular HGB Conc 33.8 g/dl (31.0-35.0); Mean Corpuscular Hemoglobin 31.1 pg (27.0-33.0); Mean Corpuscular Volume 92.1 fL (80.0-98.0); Monocytes Absolute Auto 0.7 X10*3/uL (0.1-1.2); Monocytes Percent Auto 7.3 % (2-11); Neutrophils Absolute Auto 4.6 x10*3/uL (2.0-8.3); Neutrophils Percent Auto 48.2 % (45-73); Platelet Count 302 X10*3/uL (160-400); Red Blood Count 4.82 X10*6/uL (4.20-5.50); White Blood Count 9.5 X10*3/uL (4.8-10.8)
[2023-12-19 12:42] LABS: Estimated Average Glucose 186 mg/dL; Hemoglobin A1c % 8.1 % (<6.0)
[2023-12-19 13:13] LABS: Creatinine Urine 98.52 mg/dL; Microalbum/Creatinine Ratio Ur 13.1 ug/mg cr (<30)
[2023-12-19 13:19] LABS: Alanine Aminotransferase 22 U/L (0-31); Albumin Level 4.2 g/dL (3.5-5.0); Alkaline Phosphatase 78 U/L (39-117); Anion Gap 12 (12-20); Aspartate Amino Transferase 18 U/L (5-31); Bilirubin Total 0.6 mg/dL (0.0-1.0); Blood Urea Nitrogen 11 mg/dL (9-16); Calcium 9.3 mg/dL (8.4-10.2); Carbon Dioxide 26 mmol/L (22-29); Chloride 109 mmol/L (96-108); Cholesterol 205 mg/dL (<200); Estimated Glomerular Filt Rate > 60; Glucose Random 112 mg/dL (60-115); HDL Cholesterol 55 mg/dL (>40); LDL Cholesterol Calculated 114 mg/dL (<100); Potassium 3.5 mmol/L (3.3-5.1); Sodium 143 mmol/L (135-145); Total Protein 7.6 g/dL (6.5-8.0); Triglycerides 181 mg/dL (<150)
== END 2023-12-19 11:15 | disposition home or self-care (01) ==
LOC: HO.LAB 11:14
PROVIDERS: PCP Internal Medicine; Visit Provider Internal Medicine
DX: D64.89 Other specified anemias (principal); E11.9 Type 2 diabetes mellitus without complications; E78.00 Pure hypercholesterolemia, unspecified; K51.90 Ulcerative colitis, unspecified, without complications; R80.9 Proteinuria, unspecified
CPT/HCPCS: 36415; 80053; 80061; 82043; 82570; 83036; 85025

== ENCOUNTER 2024-04-01 07:08 | Outpatient (REF) | payer OTHER, SELFPAY ==
[2024-04-01 08:17] LABS: Estimated Average Glucose 163 mg/dL; Hemoglobin A1c % 7.3 % (<6.0)
[2024-04-01 08:39] LABS: Alanine Aminotransferase 21 U/L (0-31); Albumin Level 3.8 g/dL (3.5-5.0); Alkaline Phosphatase 79 U/L (39-117); Anion Gap 13 (12-20); Aspartate Amino Transferase 18 U/L (5-31); Bilirubin Total 0.4 mg/dL (0.0-1.0); Blood Urea Nitrogen 7 mg/dL (9-16); Calcium 9.2 mg/dL (8.4-10.2); Carbon Dioxide 22 mmol/L (22-29); Chloride 108 mmol/L (96-108); Estimated Glomerular Filt Rate > 60; Glucose Random 118 mg/dL (60-115); Potassium 3.6 mmol/L (3.3-5.1); Sodium 139 mmol/L (135-145); Total Protein 6.8 g/dL (6.5-8.0)
== END 2024-04-01 07:09 | disposition home or self-care (01) ==
LOC: HO.LAB 07:08
PROVIDERS: PCP Internal Medicine; Visit Provider Internal Medicine
DX: Z00.01 Encounter for general adult medical examination with abnormal findings (principal); K51.90 Ulcerative colitis, unspecified, without complications; E11.65 Type 2 diabetes mellitus with hyperglycemia
CPT/HCPCS: 36415; 80053; 83036

== ENCOUNTER 2024-07-27 09:56 | Outpatient (REF) | payer OTHER, SELFPAY ==
[2024-07-27 11:11] LABS: Estimated Average Glucose 174 mg/dL; Hemoglobin A1C 231.4778 umol/L; Hemoglobin A1c % 7.7 % (<6.0); Total Hemoglobin (HGBA1C) 3820.7156 umol/L
[2024-07-27 11:46] LABS: Albumin Level 4.3 g/dL (3.5-5.0); Alkaline Phosphatase 89 U/L (39-117); Anion Gap 12 (12-20); Aspartate Amino Transferase 38 U/L (5-31); Bilirubin Total 0.5 mg/dL (0.0-1.0); Blood Urea Nitrogen 7 mg/dL (9-16); Calcium 9.5 mg/dL (8.4-10.2); Carbon Dioxide 23 mmol/L (22-29); Chloride 109 mmol/L (96-108); Cholesterol 194 mg/dL (<200); Estimated Glomerular Filt Rate > 60; Glucose Random 160 mg/dL (60-115); HDL Cholesterol 45 mg/dL (>40); LDL Cholesterol Calculated 111 mg/dL (<100); Potassium 3.9 mmol/L (3.3-5.1); Sodium 140 mmol/L (135-145); Total Protein 7.6 g/dL (6.5-8.0); Triglycerides 193 mg/dL (<150)
[2024-07-27 12:11] LABS: Alanine Aminotransferase 38 U/L (0-31)
== END 2024-07-27 09:57 | disposition home or self-care (01) ==
LOC: HO.LAB 09:56
PROVIDERS: Internal Medicine Endocrinology, Diabetes & Metabolism; PCP Internal Medicine; Visit Provider Internal Medicine
DX: E11.65 Type 2 diabetes mellitus with hyperglycemia (principal); E78.00 Pure hypercholesterolemia, unspecified; I10 Essential (primary) hypertension; N30.00 Acute cystitis without hematuria
CPT/HCPCS: 36415; 80053; 80061; 83036

== ENCOUNTER 2024-08-03 10:37 | Outpatient (REF) | payer OTHER, SELFPAY ==
[2024-08-03 12:01] LABS: Estimated Average Glucose 174 mg/dL; Hemoglobin A1C 237.4998 umol/L; Hemoglobin A1c % 7.7 % (<6.0); Total Hemoglobin (HGBA1C) 3888.4145 umol/L
[2024-08-03 12:37] LABS: Albumin Level 4.1 g/dL (3.5-5.0); Alkaline Phosphatase 86 U/L (39-117); Anion Gap 13 (12-20); Aspartate Amino Transferase 35 U/L (5-31); Bilirubin Total 0.4 mg/dL (0.0-1.0); Blood Urea Nitrogen 6 mg/dL (9-16); Calcium 9.6 mg/dL (8.4-10.2); Carbon Dioxide 24 mmol/L (22-29); Chloride 110 mmol/L (96-108); Cholesterol 182 mg/dL (<200); Estimated Glomerular Filt Rate > 60; Glucose Random 155 mg/dL (60-115); HDL Cholesterol 42 mg/dL (>40); LDL Cholesterol Calculated 101 mg/dL (<100); Potassium 3.5 mmol/L (3.3-5.1); Sodium 143 mmol/L (135-145); Total Protein 7.3 g/dL (6.5-8.0); Triglycerides 198 mg/dL (<150)
[2024-08-03 13:05] LABS: Alanine Aminotransferase 33 U/L (0-31)
== END 2024-08-03 10:38 | disposition home or self-care (01) ==
LOC: HO.LAB 10:37
PROVIDERS: PCP Internal Medicine; Visit Provider Internal Medicine
DX: E11.65 Type 2 diabetes mellitus with hyperglycemia (principal); E78.00 Pure hypercholesterolemia, unspecified; I10 Essential (primary) hypertension; N30.00 Acute cystitis without hematuria
CPT/HCPCS: 36415; 80053; 80061; 83036

== ENCOUNTER 2024-11-09 10:25 | Outpatient (REF) | payer OTHER, SELFPAY ==
[2024-11-09 11:49] LABS: Estimated Average Glucose 200 mg/dL; Hemoglobin A1C 265.2108 umol/L; Hemoglobin A1c % 8.6 % (<6.0); Total Hemoglobin (HGBA1C) 3761.9175 umol/L
[2024-11-09 12:31] LABS: Alanine Aminotransferase 28 U/L (0-31); Albumin Level 4.2 g/dL (3.5-5.0); Alkaline Phosphatase 99 U/L (39-117); Anion Gap 12 (12-20); Aspartate Amino Transferase 23 U/L (5-31); Bilirubin Total 0.5 mg/dL (0.0-1.0); Blood Urea Nitrogen 8 mg/dL (9-16); Calcium 9.3 mg/dL (8.4-10.2); Carbon Dioxide 25 mmol/L (22-29); Chloride 108 mmol/L (96-108); Cholesterol 177 mg/dL (<200); Estimated Glomerular Filt Rate > 60; Glucose Random 197 mg/dL (60-115); HDL Cholesterol 43 mg/dL (>40); LDL Cholesterol Calculated 102 mg/dL (<100); Sodium 141 mmol/L (135-145); Total Protein 7.9 g/dL (6.5-8.0); Triglycerides 162 mg/dL (<150)
== END 2024-11-09 10:26 | disposition home or self-care (01) ==
LOC: HO.LAB 10:25
PROVIDERS: PCP Internal Medicine; Visit Provider Internal Medicine
DX: I10 Essential (primary) hypertension (principal); E78.00 Pure hypercholesterolemia, unspecified; E11.65 Type 2 diabetes mellitus with hyperglycemia; B37.49 Other urogenital candidiasis
CPT/HCPCS: 36415; 80053; 80061; 83036

== ENCOUNTER 2024-11-17 15:33 | Outpatient (REF) | payer OTHER, SELFPAY | END 2024-11-17 15:34 | disposition home or self-care (01) | LOC: HO.MAMMO 15:33 | PROVIDERS: PCP Internal Medicine; Visit Provider Internal Medicine | DX: Z12.31 Encounter for screening mammogram for malignant neoplasm of breast (principal) | CPT/HCPCS: 77063; 77067 ==

== ENCOUNTER → 2024-11-17 15:45 | Outpatient (BNV) | payer OTHER, SELFPAY | PROVIDERS: PCP Internal Medicine; Visit Provider Internal Medicine | DX: Z12.31 Encounter for screening mammogram for malignant neoplasm of breast (principal) | CPT/HCPCS: 77063; 77067 ==

== ENCOUNTER 2024-12-03 08:15 | Day surgery (SDC) | payer OTHER, SELFPAY ==
--- NOTE | 2024-06-24 09:10 | HO.ANESPROP2 ---
HPI - Anesthesia Eval Consult details Narrative: 49yo F for Colonoscopy Anesthesia Pre-Procedure Meds Is the patient on any of the following meds?: GLP1/DPP4 and SGLT2 Inhib PMFSH Active Problems Active Problems: All Active Problems Diabetes (Acute) Rectal bleeding (Acute) Family history of polyps in the colon (Acute) Hemorrhoids (Acute) Abdominal cramping (Acute) Ulcerative colitis (Acute) Past Medical History Medical History (Updated 10/15/23 @ 16:12 by RUPERT Parker) Pre-op examination Focal nodular hyperplasia of liver High cholesterol Left bundle branch block Dermoid cyst Uterine fibroid Anemia Renal arterial aneurysm Hypertension Nephrolithiasis PCOS (polycystic ovarian syndrome) Family History Family History Father No problems noted. Mother Breast cancer Surgical History Surgical History Hx of colonoscopy Hx of section Social History Social History Alcohol intake: current Alcohol intake frequency: does not drink Meds Allergies Allergy/AdvReac Type Severity Reaction Status Date / Time No Known Allergies Allergy Verified 10/15/23 16:08 [No Known Allergies*] Home Medications ?Medication ?Instructions ?Recorded ?Confirmed ?Last Taken ?Type cyanocobalamin (vitamin B-12) 1,000 mcg PO DAILY 12/18/20 Unknown History 1,000 mcg tablet ezetimibe 10 mg tablet 10 mg PO DAILY 12/18/20 Unknown History metformin 1,000 mg tablet 1,000 mg PO BID 12/18/20 Unknown History valsartan 320 mg tablet 320 mg PO DAILY 12/18/20 Unknown History rosuvastatin 40 mg tablet 40 mg PO DAILY 03/14/22 Unknown History dulaglutide 1.5 mg/0.5 mL mg subcut QWEEK 07/25/22 Unknown History subcutaneous pen injector (Trulicity) glimepiride 2 mg tablet 2 mg PO DAILY 11/14/22 Unknown History aspirin 81 mg chewable tablet 1 tab PO DAILY 08/20/23 Unknown History empagliflozin 25 mg tablet 25 mg PO DAILY 08/20/23 Unknown History (Jardiance) Assessment and Plan Assessment Anesthesia Assessment: Chart Reviewed
--- NOTE | 2024-12-02 08:55 | HO.ANESPROP2 ---
Documented by User: Tamela Pelaez NP 12/02/24 08:56 HPI - Anesthesia Eval Consult details Narrative: 49yo F for Colonoscopy Anesthesia Pre-Procedure Meds Is the patient on any of the following meds?: GLP1/DPP4 and SGLT2 Inhib PMFSH Active Problems Active Problems: All Active Problems Diabetes (Acute) Rectal bleeding (Acute) Family history of polyps in the colon (Acute) Hemorrhoids (Acute) Abdominal cramping (Acute) Ulcerative colitis (Acute) Past Medical History Medical History Diabetes Focal nodular hyperplasia of liver High cholesterol Left bundle branch block Dermoid cyst Uterine fibroid Anemia Renal arterial aneurysm Hypertension Nephrolithiasis PCOS (polycystic ovarian syndrome) Pre-op examination Family History Family History Father No problems noted. Mother Breast cancer Surgical History Surgical History Hx of colonoscopy Hx of section Social History Social History Are you a primary healthcare administration intern to a significant other at home: No Do you presently have visiting nurse or other home services: No Alcohol intake: current Alcohol intake frequency: does not drink Patient Tobacco Use Status: Never used Tobacco Have you been hit, kicked, punched, or otherwise hurt by someone within the past year? If so, by whom?: No Are you DNR?: No Advance Directives: No Advance Directives Information Provided: Yes Recently lost weight without trying: No Nutrition Risks: No Nutritional Risk FDLMP: 2 weeks ago Meds Allergies Allergy/AdvReac Type Severity Reaction Status Date / Time No Known Allergies Allergy Verified 12/03/24 08:42 [No Known Allergies*] Home Medications ?Medication ?Instructions ?Recorded ?Confirmed ?Last Taken ?Type cyanocobalamin (vitamin B-12) 1,000 mcg PO DAILY 12/18/20 12/03/24 Unknown History 1,000 mcg tablet ezetimibe 10 mg tablet 10 mg PO DAILY 12/18/20 12/03/24 Unknown History metformin 1,000 mg tablet 1,000 mg PO BID 12/18/20 12/03/24 Unknown History valsartan 320 mg tablet 320 mg PO DAILY 12/18/20 12/03/24 Unknown History rosuvastatin 40 mg tablet 40 mg PO DAILY 03/14/22 12/03/24 Unknown History dulaglutide 1.5 mg/0.5 mL mg subcut QWEEK 07/25/22 11/19/24 History subcutaneous pen injector (Trulicity) glimepiride 2 mg tablet 2 mg PO DAILY 11/14/22 12/03/24 Unknown History aspirin 81 mg chewable tablet 1 tab PO DAILY 08/20/23 12/03/24 11/26/24 History Assessment and Plan Assessment Anesthesia Assessment: Chart Reviewed Documented by User: Laurel Santillan MD 12/03/24 10:13 HPI - Anesthesia Eval Anesthesia Pre-Procedure Meds Is the patient on any of the following meds?: GLP1/DPP4 (Last dose of trulicity 11/19/24) PMFSH Past Medical History Medical History Diabetes Focal nodular hyperplasia of liver High cholesterol Left bundle branch block Dermoid cyst Uterine fibroid Anemia Renal arterial aneurysm Hypertension Nephrolithiasis PCOS (polycystic ovarian syndrome) Pre-op examination Family History Family History Father No problems noted. Mother Breast cancer Family history of problems with anesthesia: No Surgical History Surgical History Hx of colonoscopy Hx of section History of Problems with Anesthesia: No Social History Social History Are you a primary healthcare administration intern to a significant other at home: No Do you presently have visiting nurse or other home services: No Alcohol intake: current Alcohol intake frequency: does not drink Patient Tobacco Use Status: Never used Tobacco Have you been hit, kicked, punched, or otherwise hurt by someone within the past year? If so, by whom?: No Are you DNR?: No Advance Directives: No Advance Directives Information Provided: Yes Recently lost weight without trying: No Nutrition Risks: No Nutritional Risk FDLMP: 2 weeks ago Meds Allergies Allergy/AdvReac Type Severity Reaction Status Date / Time No Known Allergies Allergy Verified 12/03/24 08:42 [No Known Allergies*] Home Medications ?Medication ?Instructions ?Recorded ?Confirmed ?Last Taken ?Type cyanocobalamin (vitamin B-12) 1,000 mcg PO DAILY 12/18/20 12/03/24 Unknown History 1,000 mcg tablet ezetimibe 10 mg tablet 10 mg PO DAILY 12/18/20 12/03/24 Unknown History metformin 1,000 mg tablet 1,000 mg PO BID 12/18/20 12/03/24 Unknown History valsartan 320 mg tablet 320 mg PO DAILY 12/18/20 12/03/24 Unknown History rosuvastatin 40 mg tablet 40 mg PO DAILY 03/14/22 12/03/24 Unknown History dulaglutide 1.5 mg/0.5 mL mg subcut QWEEK 07/25/22 11/19/24 History subcutaneous pen injector (Trulicity) glimepiride 2 mg tablet 2 mg PO DAILY 11/14/22 12/03/24 Unknown History aspirin 81 mg chewable tablet 1 tab PO DAILY 08/20/23 12/03/24 11/26/24 History Exam Height,Weight and Vital Signs: Height 4 ft 11 in Weight 55.7 kg Vital Signs Temp Pulse Resp BP Pulse Ox O2 Del Method 12/03/24 09:18 98.0 F 94 18 129/67 100 Room Air Pertinent Lab Results Pertinent Lab Results: Lab Results 12/03/24 12/03/24 Range/Units 08:55 09:02 POC Glucose 196 H (60-115) mg/dL Urine Test NEGATIVE (NEGATIVE) Airway Mallampati Class: II TM Dist: >3cm Neck ROM: Full Loose/Missing/Broken Teeth: Yes (Missing molar. Denies broken, loose teeth) Heart: RRR Lungs: CTAB Assessment and Plan Assessment Anesthesia Assessment: Anesthesia Plan Discussed and Chart Reviewed Final Anesthetic Review Family History of Problems with Anesthesia: No History of Problems with Anesthesia: No NPO: Yes ASA Class: III Final Preanesthetic Review: No Changes in Pt Med Stat, Meds/Allgs Chart Reviewed, Consent Obtained/Reviewed and Anes Risks/Benef Reviewed Patient Risk: Intermediate Procedure Risk: Low Assessment/Block/Sedation in SS: Assess/Block/Sedation-SS Anesthetic Plan Anesthetic Plan: TIVA Disposition: Standard PACU
[2024-12-03] MEDS: Lactated Ringers 1,000 ML 100 ML IVCONT (08:57)
[2024-12-03 09:05] LABS: UPreg QC Valid YES; Urine Pregnancy NEGATIVE (NEGATIVE)
[2024-12-03 09:06] LABS: Glucose, Whole Blood 196 mg/dL (60-115)
[2024-12-03 09:18] VITALS: BP 129/67; PULSE 94; RESP 18; TEMP 36.7; O2SAT 100
--- NOTE | 2024-12-03 09:19 | MHC.SHP ---
Pre-Procedural Eval Section A - 24 Hr Update-Section A only Date of Service: 12/03/24 The patient is an INPATIENT: No The patient has been examined within 24 hours of the surgical procedure. The History & Physical has been completed within 30 days and I have reviewed it.: No Section B - Complete if H&P > 30 days Chief Complaint: screening, UC surveillance Relevant Family History (Specify if Yes): No Relevant Social History: None Present Medications: see Short Stay Collaborative assessment Medical History: Significant History (Focal nodular hyperplasia of liver High cholesterol Left bundle branch block Dermoid cyst Uterine fibroid Anemia Renal arterial aneurysm Hypertension Nephrolithiasis PCOS (polycystic ovarian syndrome)) History of Previous Operations: Relevant previous surgery/procedure and date(s) (Hx of colonoscopy Hx of section) Allergies: Allergies Allergy/AdvReac Type Severity Reaction Status Date / Time No Known Allergies Allergy Verified 12/03/24 08:42 [No Known Allergies*] Review of Systems Sugical H&P ROS: Negative: Constitution, Cardiovascular, Respiratory and Gastrointestinal Exam Surgical H&P Exam: Normal: Heart, Normal: Lungs, Normal: Extremities and Normal: Abdomen Plan Diagnosis/Plan: Unchanged I have reviewed the history and physical and performed a pertinent physical examination on my patient. No changes have occurred unless specified. Time Spent With Patient Time: Total time managing care of this patient today ____ minutes.
[2024-12-03 09:20] VITALS: BMI 24.8
[2024-12-03 10:39] VITALS: BP 97/42; PULSE 90; RESP 16; TEMP 36.3; O2SAT 99
--- NOTE | 2024-12-03 10:40 | HO.OPN-COLON ---
Colonoscopy Operative Note Operative Note Date of Service: 12/03/24 Narrative: COLONOSCOPY TILL CECUM WITH BIOPSIES Pre-op diagnosis: Colon cancer screening, surveillance for UC. Post-op diagnosis:? Proctitis, Diverticulosis, hemorrhoids Endoscopist:? Patrick Monte MD Anesthesia:?MAC Consent: Indications for the procedure and potential complications of bleeding, perforation, reaction to medications and missed diagnosis were discussed with the patient and informed consent was obtained. Instrument: Olympus PCF H 190 L variable stiffness pediatric colonoscope Monitoring: Vital signs and clinical assessment, intermittent blood pressure monitoring, continuous EKG monitoring, Pulse oximetry and Carbon Dioxide monitoring were done throughout the procedure. Please see anesthesia flowsheet. Colon withdrawl time was 22 minutes. Procedure: The patient was placed in the left lateral decubitis position and pre-procedure medications were administered. After a digital rectal examination of the ano-rectum, the video colonoscope was inserted into the rectum and advanced through the colon to the cecum. The colonoscope was slowly withdrawn in a retrograde panoramic fashion and the colon mucosa was carefully examined including a retroflexed view of the rectum. Findings and interventions are described below. Procedure Difficulty: without difficulty Findings: Terminal Ileum: Not evaluated Cecum: Patchy erythema throughout the colon without ulcers Ascending Colon: Patchy erythema throughout the colon without ulcers Transverse Colon: Patchy erythema throughout the colon without ulcers Descending Colon: Patchy erythema throughout the colon without ulcers Sigmoid Colon: Moderate diverticulosis Rectum: Proctitis from 0 to 10 cms with scattered aphthoid ulcers - biopsies were obtained Ano-rectum: Small internal hemorrhoids Colon preparation: Good after copious irrigation. [place] Bowel Preparation Scale Right colon; 2 Transverse colon: 2 Left colon; 2 (0 = Unprepared colon segment with mucosa not seen due to solid stool that cannot be cleared. 1 = Portion of mucosa of the colon segment seen, but other areas of the colon segment not well seen due to staining, residual stool and/or opaque liquid. 2 = Minor amount of residual staining, small fragments of stool and/or opaque liquid, but mucosa of colon segment seen well. 3 = Entire mucosa of colon segment seen well with no residual staining, small fragments of stool or opaque liquid) Impression and Post Procedure Diagnosis: Colonoscopy Findings: No polyps were detected Proctitis from 0 to 10 cms with multiple aphthoid ulcers - biopsies obtained Patchy erythema throughout the entire colon - Surveillance biopsies were obtained every 10 cms. Moderate diverticulosis seen in the sigmoid colon Small hemorrhoids on retroflexed exam. Plan: Pt has a FU appointment on 12/17/24 with Dasia Chadwick NP. Repeat Colonoscopy in 3-5 years if polyps are adenomatous and 10 year if polyps are hyperplastic. A summary of above findings given to the patient with relevant handouts in the discharge area. Pt advised to take mesalamine suppositories at bedtime for the proctitis.
[2024-12-03 10:44] VITALS: BP 103/55
[2024-12-03 10:54] VITALS: BP 105/45; PULSE 95; RESP 16; O2SAT 100
[2024-12-03 11:10] VITALS: BP 122/60; PULSE 91; RESP 16; TEMP 36.3; O2SAT 100
== END 2024-12-03 11:44 | disposition home or self-care (01) ==
PROVIDERS: Anesthesiology; PCP Internal Medicine; Visit Provider Internal Medicine Gastroenterology
PROC: 0DJD8ZZ Inspection of Lower Intestinal Tract, Via Natural or Artificial Opening Endoscopic (ICD-10-PCS; CPT 45378; principal; 2024-12-03 10:00)
DX: Z12.11 Encounter for screening for malignant neoplasm of colon (principal); Z83.719 Family history of colon polyps, unspecified; K51.90 Ulcerative colitis, unspecified, without complications; K62.89 Other specified diseases of anus and rectum; K57.30 Diverticulosis of large intestine without perforation or abscess without bleeding; K64.8 Other hemorrhoids; I10 Essential (primary) hypertension; I44.7 Left bundle-branch block, unspecified; I72.2 Aneurysm of renal artery; E78.00 Pure hypercholesterolemia, unspecified; D64.9 Anemia, unspecified; K76.89 Other specified diseases of liver; Z79.82 Long term (current) use of aspirin; Z79.84 Long term (current) use of oral hypoglycemic drugs; Z79.85 Long-term (current) use of injectable non-insulin antidiabetic drugs; Z79.899 Other long term (current) drug therapy
CPT/HCPCS: 45380; 81025; 82947; 88305; J2003; J2704

== ENCOUNTER → 2024-12-03 08:15 | Outpatient (BNV) | payer OTHER, SELFPAY | PROVIDERS: PCP Internal Medicine; Visit Provider Internal Medicine Gastroenterology | DX: Z12.11 Encounter for screening for malignant neoplasm of colon (principal); K51.90 Ulcerative colitis, unspecified, without complications; K57.30 Diverticulosis of large intestine without perforation or abscess without bleeding; K64.8 Other hemorrhoids | CPT/HCPCS: 45380 ==

== ENCOUNTER 2024-12-08 09:48 | Emergency (ER) | payer OTHER, SELFPAY ==
[2024-12-08 10:02] VITALS: BP 121/56; PULSE 108; RESP 16; TEMP 36.3; O2SAT 98; BMI 24.5
--- NOTE | 2024-12-08 10:04 | ECG_ITS ---
Test Reason : ABDOMINAL PAIN Blood Pressure : */* mmHG Vent. Rate : 99 BPM Atrial Rate : 99 BPM P-R Int : 128 ms QRS Dur : 124 ms QT Int : 380 ms P-R-T Axes : 52 -7 72 degrees QTcB Int : 487 ms Normal sinus rhythm Left bundle branch block Abnormal ECG No previous ECGs available Referred By: Generic ED Physician Electronically Signed By: Mikhail Ma
[2024-12-08 10:35] LABS: MANUAL DIFF FLAG NO
[2024-12-08 10:42] LABS: Basophils Absolute Auto 0.1 X10*3/uL (0.0-0.2); Basophils Percent Auto 0.6 % (0-2); Eosinophils Absolute Auto 0.2 X10*3/uL (0.0-0.4); Eosinophils Percent Auto 1.3 % (0-4); Hematocrit 45.3 % (37.0-47.0); Hemoglobin 15.2 g/dl (12.0-16.0); Imm Gran Abs Auto 0.06 X10*3/uL (0.00-0.03); Imm Gran Pct Auto 0.5 % (0.0-0.4); Lymphocytes Percent Auto 15.4 % (20-40); Mean Corpuscular HGB Conc 33.6 g/dl (31.0-35.0); Mean Corpuscular Volume 92.3 fL (80.0-98.0); Mean Platelet Volume 9.8 fL (9.4-12.3); Monocytes Absolute Auto 0.8 X10*3/uL (0.1-1.2); Neutrophils Absolute Auto 9.7 x10*3/uL (2.0-8.3); Neutrophils Percent Auto 76.2 % (45-73); Platelet Count 299 X10*3/uL (160-400); Red Blood Count 4.91 X10*6/uL (4.20-5.50); Red Cell Distribution Width 12.3 % (11.0-16.0); White Blood Count 12.7 X10*3/uL (4.8-10.8)
[2024-12-08 10:55] LABS: Alanine Aminotransferase 50 U/L (0-31); Albumin Level 4.4 g/dL (3.5-5.0); Alkaline Phosphatase 111 U/L (39-117); Anion Gap 11 (12-20); Aspartate Amino Transferase 51 U/L (5-31); Bilirubin Direct 0.2 mg/dL (0.0-0.5); Bilirubin Total 0.6 mg/dL (0.0-1.0); Blood Urea Nitrogen 13 mg/dL (9-16); Calcium 9.8 mg/dL (8.4-10.2); Carbon Dioxide 21 mmol/L (22-29); Chloride 108 mmol/L (96-108); Creatinine Clr Calc Pharmacy 65.4; Estimated Glomerular Filt Rate > 60; Glucose Random 217 mg/dL (60-115); Lipase 42 U/L (8-78); Potassium 4.4 mmol/L (3.3-5.1); Sodium 136 mmol/L (135-145); Total Protein 8.3 g/dL (6.5-8.0)
[2024-12-08 11:15] LABS: Influenza A PCR NEGATIVE (Negative); Influenza B PCR NEGATIVE (Negative); Resp Syncy Virus RNA Qual PCR NEGATIVE (Negative); SARS COV2 PCR INHOUSE NEGATIVE (Negative)
[2024-12-08 11:44] LABS: Troponin-I High Sensitivity < 2.7 ng/L (<3.5-17.0)
--- NOTE | 2024-12-08 12:29 | ED_ITS ---
HPI - General Adult General Chief complaint: Abdominal Pain Stated complaint: Diarrhea, Lower Ab Pain Time Seen by Provider: 12/08/24 12:29 History of Present Illness ED Provider: Luann STEPHENSON narrative: The patient is a 49-year-old woman with a history of ulcerative colitis. She had an outpatient colonoscopy 5 days ago last Friday. At colonoscopy she was found to have findings consistent with proctitis and multiple apthoid ulcers. There was also patchy erythema throughout the entire colon. She was prescribed mesalamine suppositories which she has been taking nightly since the procedure. Yesterday evening at around 19:00 she developed diarrhea that was associated with nausea and epigastric abdominal pain. She had approximately 6 episodes of diarrhea last night and 3 more this morning. She had nausea. She has vomited once. She says that she read about mesalamine and thinks that she is having side effects from the new medication. She has had no fever. No chest pain. Related Data Home Medications ?Medication ?Instructions ?Recorded ?Confirmed cyanocobalamin (vitamin B-12) 1,000 mcg PO DAILY 12/18/20 12/03/24 1,000 mcg tablet ezetimibe 10 mg tablet 10 mg PO DAILY 12/18/20 12/03/24 metformin 1,000 mg tablet 1,000 mg PO BID 12/18/20 12/03/24 valsartan 320 mg tablet 320 mg PO DAILY 12/18/20 12/03/24 rosuvastatin 40 mg tablet 40 mg PO DAILY 03/14/22 12/03/24 dulaglutide 1.5 mg/0.5 mL mg subcut QWEEK 07/25/22 subcutaneous pen injector (Trulicity) glimepiride 2 mg tablet 2 mg PO DAILY 11/14/22 12/03/24 aspirin 81 mg chewable tablet 1 tab PO DAILY 08/20/23 12/03/24 Previous Rx's ?Medication ?Instructions ?Recorded hydrocortisone 1 % topical cream 1 appl OK BID PRN skin irritation 01/15/22 (Ala-Olivier) 30 days #28.4 grams ondansetron 4 mg disintegrating 4 mg PO Q8H PRN nausea and 01/08/23 tablet vomiting 3 days #10 tabs budesonide 3 mg 9 mg (3 x 3 mg) PO QAM #90 ea 09/25/23 capsule,delayed,extended release prednisone 20 mg tablet 20 mg PO DAILY #30 tabs 10/15/23 ustekinumab 130 mg/26 mL 390 mg (78 mL) IV ONCE #26 mL 10/16/23 intravenous solution (Stelara) ustekinumab 90 mg/mL subcutaneous 90 mg subcut Q8W #1 mL 07/15/24 syringe (Stelara) mesalamine 1,000 mg rectal 1 g OK BEDTIME 4 weeks #30 ea 12/03/24 suppository famotidine 40 mg tablet 40 mg PO DAILY #30 tabs 12/08/24 ondansetron 4 mg disintegrating 4 mg PO Q6H PRN nausea and 12/08/24 tablet vomiting #12 tabs Allergies Allergy/AdvReac Type Severity Reaction Status Date / Time No Known Allergies Allergy Verified 12/08/24 10:04 [No Known Allergies*] Review of Systems 2 Review of Systems: Yes all other systems are reviewed and are negative PMFSH Past Medical History Medical History Diabetes Focal nodular hyperplasia of liver High cholesterol Left bundle branch block Dermoid cyst Uterine fibroid Anemia Renal arterial aneurysm Hypertension Nephrolithiasis PCOS (polycystic ovarian syndrome) Pre-op examination Surgical History Hx of colonoscopy Hx of section Family History Family History Father No problems noted. Mother Breast cancer Social History Social History Are you a primary critical care unit manager to a significant other at home: No Do you presently have visiting nurse or other home services: No Alcohol intake: never Patient Tobacco Use Status: Never used Tobacco Smoked in Last 30 Days: No Use of substances other than those prescribed or required for medical reasons: No Advance Directives: No Advance Directives Information Provided: Yes Physical Exam ED Vital Signs: Vital Signs - 24 hr 12/08/24 10:02 12/08/24 16:00 12/08/24 16:27 Temperature 97.4 F 98.0 F 98.0 F Pulse Rate 108 H 101 H 101 H Respiratory Rate 16 18 18 Blood Pressure 121/56 L 129/58 L 129/58 L Pulse Oximetry 98 97 97 Oxygen Delivery Method Room Air Room Air Room Air BMI result Body Mass Index 24.5 Const Other: The patient is awake and alert. She is pleasant and cooperative. She does not appear obviously ill or uncomfortable. HENMT Other: Face is symmetrical. Mucous membranes moist. Eyes General: appearance normal, both eyes and all related structures Neck Neck: Yes normal visual inspection and Yes full ROM Resp Effort & Inspection: normal respiratory effort Auscultation: clear to auscultation bilaterally Cardio Rate: regular rate Rhythm: regular rhythm Heart sounds: S1 normal heart sound present and S2 normal heart sound present GI Other: The patient has fairly diffuse abdominal tenderness, most prominent in the epigastrium. No rebound or guarding. The abdomen is soft. Skin Other: Skin is dry and unremarkable Neuro Other: The patient is awake and alert with a normal mental status and a benign demeanor. Cranial nerves are grossly intact. She moves her extremities normally and appropriately. Extrem Other: No peripheral edema Medications Administered Discontinued Medications Generic Name Dose Route Start Last Admin Trade Name Freq PRN Reason Stop Dose Admin Ondansetron HCl 4 mg 12/08/24 13:25 12/08/24 13:33 Ondansetron Odt 4 Mg Tab.Rapdis TRANSLINGU 12/08/24 13:26 4 mg ONCE ONE Administration Sucralfate 1 gm 12/08/24 13:25 12/08/24 13:33 Sucralfate Oral Suspension 1 Gm/10 Ml Oral.Susp PO 12/08/24 13:26 1 gm ONCE ONE Administration Medical Decision Making Medical Decision Making [facility] Narrative: The patient is a 49-year-old female with a history of ulcerative colitis who presents with acute diarrhea after being started on mesalamine suppositories 5 days ago. Here the patient does not look toxic or acutely ill. She was able to give a stool sample. Her C diff is negative. Other stool studies are pending. 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 Lab Data 12/08/24 10:30 12/08/24 10:30 Labs: Lab Results 12/08/24 12/08/24 Range/Units 10:30 15:22 WBC 12.7 H (4.8-10.8) X10*3/uL RBC 4.91 (4.20-5.50) X10*6/uL Hgb 15.2 (12.0-16.0) g/dl Hct 45.3 (37.0-47.0) % MCV 92.3 (80.0-98.0) fL MCH 31.0 (27.0-33.0) pg MCHC 33.6 (31.0-35.0) g/dl RDW 12.3 (11.0-16.0) % Plt Count 299 (160-400) X10*3/uL MPV 9.8 (9.4-12.3) fL Immature Gran % (Auto) 0.5 H (0.0-0.4) % Neut % (Auto) 76.2 H (45-73) % Lymph % (Auto) 15.4 L (20-40) % Nuckolls % (Auto) 6.0 (2-11) % Eos % (Auto) 1.3 (0-4) % Baso % (Auto) 0.6 (0-2) % Lymph # (Auto) 2.0 (1.2-4.9) X10*3/uL Nuckolls # (Auto) 0.8 (0.1-1.2) X10*3/uL Eos # (Auto) 0.2 (0.0-0.4) X10*3/uL Baso # (Auto) 0.1 (0.0-0.2) X10*3/uL Abs Immat Gran (auto) 0.06 H (0.00-0.03) X10*3/uL Absolute Neuts (auto) 9.7 H (2.0-8.3) x10*3/uL Absolute Nucleated RBC 0.000 (0.0-0.012) X10*3/uL Nucleated RBC % (auto) 0.0 (0.0-0.2) /100WBC Sodium 136 (135-145) mmol/L Potassium 4.4 (3.3-5.1) mmol/L Chloride 108 (96-108) mmol/L Carbon Dioxide 21 L (22-29) mmol/L Anion Gap 11 L (12-20) BUN 13 (9-16) mg/dL Creatinine 0.77 (0.5-1.4) mg/dL Estim Creat Clear Calc 65.4 Estimated GFR > 60 Random Glucose 217 H (60-115) mg/dL Calcium 9.8 (8.4-10.2) mg/dL Total Bilirubin 0.6 (0.0-1.0) mg/dL Direct Bilirubin 0.2 (0.0-0.5) mg/dL AST 51 H (5-31) U/L ALT 50 H (0-31) U/L Alkaline Phosphatase 111 (39-117) U/L Troponin I High Sens < 2.7 (<3.5-17.0) ng/L C-Reactive Protein 0.57 H (< or = 0.50) mg/dL Total Protein 8.3 H (6.5-8.0) g/dL Albumin 4.4 (3.5-5.0) g/dL Lipase 42 (8-78) U/L C. difficile Tox B Gene NEGATIVE (Negative) Influenza Type A (PCR) NEGATIVE (Negative) Influenza Type B (PCR) NEGATIVE (Negative) RSV RNA Qual (PCR) NEGATIVE (Negative) SARS-CoV-2 RNA (RT-PCR) NEGATIVE (Negative) Discharge Plan Discharge Clinical Impression: Diarrhea Patient Disposition: Home, Self-Care Additional Instructions: I would recommend stopping the mesalamine suppositories. I have sent a prescription for nausea medication which you may use as needed. I have also sent a prescription for an acid reducing medicine, famotidine, that may help with your upper abdominal discomfort. You may take this daily. Please contact Dr. Monte's office for a follow up appointment to discuss this further. Return to the emergency room if worse. Prescriptions: New ondansetron 4 mg tablet,disintegrating 4 mg PO Q6H PRN (Reason: nausea and vomiting) Qty: 12 0RF famotidine 40 mg tablet 40 mg PO DAILY Qty: 30 0RF No Action Stelara 130 mg/26 mL solution 390 mg IV ONCE Qty: 26 0RF Stelara 90 mg/mL syringe 90 mg subcut Q8W Qty: 1 2RF mesalamine 1,000 mg suppository 1 g OK BEDTIME 28 Days Qty: 30 1RF ondansetron 4 mg tablet,disintegrating 4 mg PO Q8H PRN (Reason: nausea and vomiting) 3 Days Qty: 10 0RF ezetimibe 10 mg tablet 10 mg PO DAILY valsartan 320 mg tablet 320 mg PO DAILY cyanocobalamin (vitamin B-12) 1,000 mcg tablet 1,000 mcg PO DAILY metformin 1,000 mg tablet 1,000 mg PO BID hydrocortisone [Ala-Olivier] 1 % cream 1 appl OK BID PRN (Reason: skin irritation) 30 Days Qty: 28.4 3RF Rx Instructions: jPlease include rectal applicator/cone Trulicity 1.5 mg/0.5 mL pen injector subcut QWEEK rosuvastatin 40 mg tablet 40 mg PO DAILY glimepiride 2 mg tablet 2 mg PO DAILY aspirin 81 mg tablet,chewable 1 tab PO DAILY budesonide 3 mg capsule,delayed,extend.release 9 mg PO QAM Qty: 90 3RF prednisone 20 mg tablet 20 mg PO DAILY Qty: 30 6RF Stand Alone Forms: Work/School Release Interventions: ED Discharge Assessment Last Done: 12/08/24 16:27 Discharge Date/Time: 12/08/24 16:30 Print Language: Chilean
[2024-12-08] MEDS: Sucralfate Oral Suspension 1 GM/10 ML ORAL.SUSP PO (13:33)
[2024-12-08] MEDS: Ondansetron ODT 4 MG TAB.RAPDIS TRANSLINGU (13:33)
--- NOTE | 2024-12-08 13:35 | PC.NURSE ---
pt medicated per MAR, sign language interpreter at bedside.
[2024-12-08 14:06] LABS: C Reactive Protein 0.57 mg/dL (< or = 0.50)
[2024-12-08 16:00] VITALS: BP 129/58; PULSE 101; RESP 18; TEMP 36.7; O2SAT 97
[2024-12-08 16:24] LABS: CDiff Gene PCR NEGATIVE (Negative)
[2024-12-08 16:27] VITALS: BP 129/58; PULSE 101; RESP 18; TEMP 36.7; O2SAT 97
[2024-12-09 10:19] LABS: Adenovirus F 40/41 Not Detected (Not Detect.); Astrovirus Not Detected (Not Detect.); Campylobacter Not Detected (Not Detect.); Cryptosporidium Not Detected (Not Detect.); Cyclospora cayetanensis Not Detected (Not Detect.); E. coli EAEC Not Detected (Not Detect.); E. coli EPEC Not Detected (Not Detect.); E. coli ETEC Not Detected (Not Detect.); E. coli STEC Not Detected (Not Detect.); Entamoeba histolytica Not Detected (Not Detect.); Giardia lamblia Not Detected (Not Detect.); Norovirus GI/GII Not Detected (Not Detect.); Plesiomonas shigelloides Not Detected (Not Detect.); Rotavirus A Not Detected (Not Detect.); Salmonella Not Detected (Not Detect.); Sapovirus Not Detected (Not Detect.); Shigella sp./EIEC Not Detected (Not Detect.); Vibrio Not Detected (Not Detect.); Vibrio Cholerae Not Detected (Not Detect.); Yersinia enterocolitica Not Detected (Not Detect.)
== END 2024-12-08 16:30 | disposition home or self-care (01) ==
PROVIDERS: Emergency Medicine; Emergency Provider Emergency Medicine; PCP Internal Medicine
DX: R19.7 Diarrhea, unspecified (principal); R11.2 Nausea with vomiting, unspecified; R94.31 Abnormal electrocardiogram [ECG] [EKG]; I44.7 Left bundle-branch block, unspecified; Z79.899 Other long term (current) drug therapy; Z03.818 Encounter for observation for suspected exposure to other biological agents ruled out
CPT/HCPCS: 0241U; 36415; 80048; 80076; 83690; 84484; 85025; 86140; 87493; 87507; 93005; 99283; 99284

== ENCOUNTER → 2024-12-08 10:04 | Outpatient (BNV) | payer OTHER, SELFPAY | PROVIDERS: Emergency Provider Emergency Medicine; PCP Internal Medicine; Visit Provider Internal Medicine Cardiovascular Disease | DX: I44.7 Left bundle-branch block, unspecified (principal) | CPT/HCPCS: 93010 ==

== ENCOUNTER 2024-12-17 15:01 | Outpatient (AMB) | payer OTHER, SELFPAY ==
--- NOTE | 2024-12-17 15:06 | A.OFFVIS_ITS ---
Vital Signs 12/17/24 15:07 Height 4 ft 11 in Weight 125 lb 10.616 oz BMI 25.4 Intake Visit Reasons: s/p colonoscopy Intake Note: Patient in office today in follow up s/p colonoscopy. CC: Patient reports doing well and denies having any new GI symptoms. She reports that she had a bad reaction from mesalamine suppositories and had to go to the ER. Electrical Machine Builder Required: Yes Electrical Machine Builder Language: [place] Island[place] Accompanied by: Self / Same As Patient Allergies mesalamine Allergy (Verified 12/17/24 15:09) Vomiting HPI HPI s/p colonoscopy: Details: Assessment & Plan (1) Ulcerative colitis: Comment: Ulcer proctitis Code(s): K51.90 - Ulcerative colitis, unspecified, without complications (2) Family history of polyps in the colon: Comment: 2019 scope negative repeat in 5 years Code(s): Z83.71 - Family history of colonic polyps Plan [place] #[place]. She has not heard re: scope yet, I try walking her to the schedulers but they are gone for the day. I will send them a note and try to continue to follow-up with this since she did give them the insurance card at the last visit. Trying to get stelara still in [place]. there may have been a glitch in entering the order that caused Humira to be sent instead again but she has not responded adequately to this. She continues to have more bad days than good with severe cramping, fatigue, and diarrhea. This despite being on 3 budesonide a day along with her Humira. This combined with the fact that her fecal calprotectin continues to be elevated shows me she is having inadequate control. Adding prednisone 20mg to budesinide 3 day and will titrate as she goes back and forth between good and bad days. I also advised her to make sure she is up-to-date with her COVID vaccinations, flu vaccinations and RSV vaccinations to protect her in her immunocompromised state. ROV 2 weeks. Medications: New ustekinumab (Stelara) 90 mg subcut Q8W 1 mL 0RF prednisone 20 mg PO DAILY 30 tabs 6RF K51.90 - Ulcerative colitis, unspecified, without complications ustekinumab (Stelara) 390 mg (78 mL) IV ONCE 26 mL 0RF K51.90 - Ulcerative colitis, unspecified, without complications COLONOSCOPY 12/03/24 Findings: Terminal Ileum: Not evaluated Cecum: Patchy erythema throughout the colon without ulcers Ascending Colon: Patchy erythema throughout the colon without ulcers Transverse Colon: Patchy erythema throughout the colon without ulcers Descending Colon: Patchy erythema throughout the colon without ulcers Sigmoid Colon: Moderate diverticulosis Rectum: Proctitis from 0 to 10 cms with scattered aphthoid ulcers - biopsies were obtained Ano-rectum: Small internal hemorrhoids Impression and Post Procedure Diagnosis: Colonoscopy Findings: No polyps were detected Proctitis from 0 to 10 cms with multiple aphthoid ulcers - biopsies obtained Patchy erythema throughout the entire colon - Surveillance biopsies were obtained every 10 cms. Moderate diverticulosis seen in the sigmoid colon Small hemorrhoids on retroflexed exam. Plan: Pt has a FU appointment on 12/17/24 with Dasia Chadwick NP. Repeat Colonoscopy in 3-5 years if polyps are adenomatous and 10 year if polyps are hyperplastic. A summary of above findings given to the patient with relevant handouts in the discharge area. Pt advised to take mesalamine suppositories at bedtime for the proctitis. BIOPSY Received: 12/03/24 Diagnosis A. Colon, cecum, biopsy: Colonic mucosa with lymphoid aggregates and minor crypt distortion, otherwise no specific change; no active colitis, granulomas or dysplasia. B. Colon, at 50 and 60 cm, biopsy: Colonic mucosa with lymphoid aggregates and minor crypt distortion, otherwise no specific change; no active colitis, granulomas or dysplasia. C. Colon, at 30 and 40 cm, biopsy: Colonic mucosa with no specific change; no colitis, granulomas or dysplasia. D. Colon, at 20 cm, biopsy: Colonic mucosa with lymphoid aggregate and no specific change; no colitis, granulomas or dysplasia. E. Colon, at 10 cm and rectum, biopsy: Chronic colitis/proctitis with mild activity; no granulomas or dysplasia. Comment: (E): Appearances are compatible with chronic inflammatory bowel disease. TODAY'S VISIT [place] Island[place] #V Doing better, stools formed. Tolerating Stelara well. Better energy. REpeat CRP, gus She tolerated the colonoscopy well and is agreeable to a 3 year follow-up given her personal history of IBD. The procedure was well tolerated. The results were explained and the patient is agreeable to the follow-up interval as stated. The bowel pattern has returned to normal. Education was provided to tell any 1st degree relatives about their findings to be sure that they are screened by age 45. Educated that they will be put on a recall list when it is time for their repeat scope but should they move out of state or away from the hospital they will need to remember along with their primary to repeat the procedure in a timely fashion to avoid any adverse complications. ROV 3 mos. PFSH Medical History Diabetes Focal nodular hyperplasia of liver High cholesterol Left bundle branch block Dermoid cyst Uterine fibroid Anemia Renal arterial aneurysm Hypertension Nephrolithiasis PCOS (polycystic ovarian syndrome) Pre-op examination Surgical History Hx of colonoscopy Hx of section Family History Father No problems noted. Mother Breast cancer Social History Are you a primary career counselor to a significant other at home: No Do you presently have visiting nurse or other home services: No Alcohol intake: never Patient Tobacco Use Status: Never used Tobacco Physical Exam Vital Signs: BMI result Body Mass Index 25.4 Assessment & Plan Assessment & Plan (1) Ulcerative colitis: Comment: Ulcer proctitis Code(s): K51.90 - Ulcerative colitis, unspecified, without complications Category: Medical Plan [place] Islander #V Doing better, stools formed. Tolerating Stelara well. Better energy. REpeat CRP, gus She tolerated the colonoscopy well and is agreeable to a 3 year follow-up given her personal history of IBD. The procedure was well tolerated. The results were explained and the patient is agreeable to the follow-up interval as stated. The bowel pattern has returned to normal. Education was provided to tell any 1st degree relatives about their findings to be sure that they are screened by age 45. Educated that they will be put on a recall list when it is time for their repeat scope but should they move out of state or away from the hospital they will need to remember along with their primary to repeat the procedure in a timely fashion to avoid any adverse complications. ROV 3 mos. Orders: Orders C Reactive Protein 12/17/24 K51.90 - Ulcerative colitis, unspecified, without complications Calprotectin, Fecal 12/17/24 K51.90 - Ulcerative colitis, unspecified, without complications Coding Level of Care Code Est Pt Level 3 (44222) Diagnoses Ulcerative colitis K51.90
[2024-12-17 15:07] VITALS: BMI 25.4
== END 2024-12-17 15:55 | disposition home or self-care (01) ==
LOC: HO.HGI 15:02
PROVIDERS: PCP Internal Medicine; Visit Provider Nurse Practitioner
DX: K51.90 Ulcerative colitis, unspecified, without complications (principal)
CPT/HCPCS: 99213

== ENCOUNTER → 2024-12-17 15:01 | Outpatient (BNVA) | payer OTHER, SELFPAY | PROVIDERS: PCP Internal Medicine; Visit Provider Nurse Practitioner | DX: K51.90 Ulcerative colitis, unspecified, without complications (principal) | CPT/HCPCS: 99212 ==

== ENCOUNTER 2025-02-04 06:07 | Outpatient (REF) | payer OTHER, SELFPAY ==
[2025-02-04 07:44] LABS: Estimated Average Glucose 229 mg/dL; Hemoglobin A1C 314.1947 umol/L; Hemoglobin A1c % 9.6 % (<6.0); Total Hemoglobin (HGBA1C) 3835.1038 umol/L
[2025-02-04 08:06] LABS: Alanine Aminotransferase 48 U/L (0-31); Albumin Level 4.2 g/dL (3.5-5.0); Alkaline Phosphatase 118 U/L (39-117); Anion Gap 15 (12-20); Aspartate Amino Transferase 44 U/L (5-31); Bilirubin Total 0.4 mg/dL (0.0-1.0); Blood Urea Nitrogen 11 mg/dL (9-16); Calcium 9.6 mg/dL (8.4-10.2); Carbon Dioxide 24 mmol/L (22-29); Chloride 104 mmol/L (96-108); Estimated Glomerular Filt Rate > 60; Glucose Random 283 mg/dL (60-115); Potassium 4.2 mmol/L (3.3-5.1); Sodium 139 mmol/L (135-145); Total Protein 7.5 g/dL (6.5-8.0)
[2025-02-04 08:28] LABS: Creatinine Urine 198.33 mg/dL; Microalbum/Creatinine Ratio Ur 25.7 ug/mg cr (<30)
== END 2025-02-04 06:08 | disposition home or self-care (01) ==
LOC: HO.LAB 06:07
PROVIDERS: PCP Internal Medicine; Visit Provider Internal Medicine
DX: E11.65 Type 2 diabetes mellitus with hyperglycemia (principal); E78.00 Pure hypercholesterolemia, unspecified; I10 Essential (primary) hypertension
CPT/HCPCS: 36415; 80053; 82043; 82570; 83036

== ENCOUNTER 2025-02-26 10:06 | Outpatient (REF) | payer OTHER, SELFPAY ==
[2025-02-26 11:05] LABS: C Reactive Protein 0.35 mg/dL (< or = 0.50)
[2025-03-03 19:03] LABS: Calprotectin, Fecal 419 mcg/g
== END 2025-02-26 10:07 | disposition home or self-care (01) ==
LOC: HO.LAB 10:06
PROVIDERS: PCP Internal Medicine; Visit Provider Nurse Practitioner
DX: K51.90 Ulcerative colitis, unspecified, without complications (principal)
CPT/HCPCS: 36415; 83993; 86140

== ENCOUNTER 2025-03-10 14:54 | Outpatient (AMB) | payer OTHER, SELFPAY ==
--- NOTE | 2025-03-10 14:55 | MHC.OFFVIS ---
Vital Signs 03/10/25 15:06 Height 4 ft 11 in Weight 128 lb BMI 25.9 BP 120/58 L Blood Pressure Location Lt brachial Position Sitting Pulse 102 H Pulse Source Pulse Oximeter Pulse Oximetry (%) 98 Oxygen Delivery Method Room Air Intake Visit Reasons: UC Intake Note: Est pt for mgmt of UC. Labs done. CC; Pt denies any GI sx or concerns at this time. Confirms that current Rx are effective for controlling sx. 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 Tolerating Stelara well. Better energy. REpeat CRP, gus She tolerated the colonoscopy well and is agreeable to a 3 year follow-up given her personal history of IBD. The procedure was well tolerated. The results were explained and the patient is agreeable to the follow-up interval as stated. The bowel pattern has returned to normal. Education was provided to tell any 1st degree relatives about their findings to be sure that they are screened by age 45. Educated that they will be put on a recall list when it is time for their repeat scope but should they move out of state or away from the hospital they will need to remember along with their primary to repeat the procedure in a timely fashion to avoid any adverse complications. ROV 3 mos. Orders: Orders C Reactive Protein 12/17/24 K51.90 - Ulcerative colitis, unspecified, without complications Calprotectin, Fecal 12/17/24 K51.90 - Ulcerative colitis, unspecified, without complications LABS; Laboratory Tests 08/21/23 02/26/25 02/26/25 14:25 09:30 10:14 C-Reactive Protein 0.35 Stool Calprotectin 955 H 419 H TODAYS VISIT [place] #Valencia Edmond She continues to feel well on the Stelara. Even though her fecal gus is lower than ever prior, it is not as low as I would like. We will put her on a dose of prednisone 20mg and re eval in 4 or so weeks. I think it will stay down with the Stelara after this. ROV week oe 04/04 [facility] Medical History Diabetes Focal nodular hyperplasia of liver High cholesterol Left bundle branch block Dermoid cyst Uterine fibroid Anemia Renal arterial aneurysm Hypertension Nephrolithiasis PCOS (polycystic ovarian syndrome) Pre-op examination Surgical History Hx of colonoscopy Hx of section Family History Father No problems noted. Mother Breast cancer Social History Are you a primary palliative care nurse practitioner to a significant other at home: No Do you presently have visiting nurse or other home services: No Alcohol intake: never Patient Tobacco Use Status: Never used Tobacco Review of Systems Const Denies fatigue, Denies fever(s), Denies night sweats, Denies poor appetite, Reports weight gain and Denies weight loss ENT Reports Normal hearing present, Denies dental pain, Denies dysphagia, Denies hearing loss, Denies mouth pain, Denies odynophagia, Denies throat swelling, Denies tongue swelling and Reports other (Dentition adequate) Card Reports no additional complaints Resp Reports no additional complaints GI Details: Denies abdominal pain, Denies melena, Denies bloating, Denies hematochezia, Denies constipation, Denies GI cramping, Denies dysphagia, Denies excessive flatus, Denies early satiety, Denies heartburn, Denies diarrhea, Denies nausea, Denies odynophagia, Denies vomiting and Denies hematemesis Skin/Breast Denies pruritus, Denies lesions, Denies rash and Denies jaundice Neuro Reports Normal hearing present and Denies Abnormal speech present Endo Denies fatigue Aller/Immun Denies throat swelling and Denies tongue swelling Physical Exam Vital Signs: Last Vital Signs Pulse 102 H 03/10/25 15:06 BP 120/58 L 03/10/25 15:06 Pulse Ox 98 03/10/25 15:06 Oxygen Delivery Method Room Air 03/10/25 15:06 BMI result Body Mass Index 25.9 Const General: cooperative, no acute distress, well developed and well groomed Nutritional Appearance: average body habitus and well nourished Orientation/consciousness: oriented to person, oriented to place and oriented to time Limitations: language barrier HEENT Head: Yes normocephalic and Yes atraumatic Eyes General: appearance normal, both eyes and all related structures Pupils: Equal, round and reactive pupils present Neck Neck: Yes normal visual inspection and Yes no lymphadenopathy Thyroid: Thyroid normal Resp Effort & Inspection: normal respiratory effort and able to speak in complete sentences Auscultation: clear to auscultation bilaterally Cardio Rate: regular rate Rhythm: regular rhythm Heart sounds: Normal, physiologic split S2 sound present Peripheral pulses: radial pulses present and posterior tibial pulses present GI Inspection: No distended, No Abdominal panniculus present and Yes obesity Palpation (GI): Soft to palpation, nontender, no guarding, not rigid and No hepatosplenomegaly present Percussion: Yes normal to percussion Auscultation: normal bowel sounds Rectal Exam - Female: deferred Skin General skin exam: no rashes or lesions noted, turgor normal, skin not dry, no jaundice, No spider nevi and no striae Rashes: no rashes Nails: normal Neuro General: oriented to person, oriented to place and oriented to time Cranial nerves: Yes Equal, round and reactive pupils present and Yes Normal hearing present Speech: No Abnormal speech present Extrem General: Yes normal to inspection, No clubbing, No cyanosis and No edema Psych Appearance: grossly normal and well kempt Mental Status: mental status grossly normal Speech and movement: Normal speech and movement present Affect: normal affect Attitude: cooperative Thought process: Normal thought process present and not confabulating Thought content: Normal thought content present Insight: Fair insight present (Psych) Judgement: Fair judgement present (Psych) Assessment & Plan Assessment & Plan (1) Ulcerative colitis: Comment: Ulcer proctitis Code(s): K51.90 - Ulcerative colitis, unspecified, without complications Category: Medical Plan [place] #[place] Live She continues to feel well on the Stelara. Even though her fecal gus is lower than ever prior, it is not as low as I would like. We will put her on a dose of prednisone 20mg and re eval in 4 or so weeks. I think it will stay down with the Stelara after this. ROV week oe 04/04 Orders: Orders Calprotectin, Fecal 03/29/25 K51.90 - Ulcerative colitis, unspecified, without complications Medications: New prednisone 20 mg (2 x 10 mg) PO DAILY 60 tabs 1RF K51.90 - Ulcerative colitis, unspecified, without complications Refilled ustekinumab (Stelara) INYECTE 1 JERINGA SUBCUTANEAMENTE CADA 8 SEMANAS 1 mL 0RF Coding Level of Care Code Est Pt Level 3 (35185) Diagnoses Ulcerative colitis K51.90
[2025-03-10 15:06] VITALS: BP 120/58; PULSE 102; O2SAT 98; BMI 25.9
--- OUTSIDE RECORDS SUMMARY | 2025-03-10 16:11 | XMS_ITS | Encounter Summary ---
Author Organization [facility] Address [address] [place] [address] Care Team Providers Care Act Tutor Name Role Phone Kari Cecilia Primary Care Provider [phone] Encounter Details Date Type Department Care Team Description 11/06/2015 Telephone OBGYN - [place] [address] [place] [address] Talia Andrea CNM Social History Tobacco Use Types Packs/Day Years Used Date Smoking Tobacco: Never Alcohol Use Standard Drinks/Week Comments No 0 (1 standard drink = 0.6 oz pur e alcohol) Sex Assigned at Date Recorded Not on file Job Start Date Occupation Industry Not on file Not on file Not on file documented as of this encounter Miscellaneous Notes * Telephone Encounter - Talia Andrea CNM - 11/06/2015 12:27 PM EST Telephone Information: Mobile Not on file. documented in this encounter Plan of Treatment Not on file documented as of this encounter Visit Diagnoses Not on filedocumented in this encounter Care Teams Act Tutor Relationship Specialty Start Date End Date Cecilia Pierce [address] [place], [place] [id number] PCP - General 08/27/10 documented as of this encounter
== END 2025-03-10 15:29 | disposition home or self-care (01) ==
PROVIDERS: PCP Internal Medicine; Visit Provider Nurse Practitioner
DX: K51.90 Ulcerative colitis, unspecified, without complications (principal)
CPT/HCPCS: 99213

== ENCOUNTER → 2025-03-10 14:54 | Outpatient (BNVA) | payer OTHER, SELFPAY | PROVIDERS: PCP Internal Medicine; Visit Provider Nurse Practitioner | DX: K51.90 Ulcerative colitis, unspecified, without complications (principal) | CPT/HCPCS: 99212 ==

== ENCOUNTER 2025-04-12 15:03 | Outpatient (REF) | payer OTHER, SELFPAY ==
[2025-04-17 19:58] LABS: Calprotectin, Fecal 41 mcg/g
== END 2025-04-12 15:04 | disposition home or self-care (01) ==
LOC: HO.LNP 15:03
PROVIDERS: Visit Provider Nurse Practitioner
DX: K51.90 Ulcerative colitis, unspecified, without complications (principal)
CPT/HCPCS: 83993

== ENCOUNTER 2025-04-20 14:47 | Outpatient (AMB) | payer OTHER, SELFPAY ==
--- NOTE | 2025-04-20 14:53 | MHC.OFFVIS ---
Vital Signs 04/20/25 14:58 Height 4 ft 11 in Weight 127 lb 13.89 oz BMI 25.8 BP 116/66 Blood Pressure Location Lt brachial Position Sitting Pulse 95 Intake Visit Reasons: eval fecal gus and prednisone Intake Note: Patient in office today in follow up of fecal gus test. CC: Patient reports doing well and denies having any new GI concerns today. Event Mgr Required: Yes Event Mgr Language: Citizen [place] Accompanied by: Self / Same As Patient Allergies mesalamine Allergy (Verified 04/20/25 15:01) Vomiting semaglutide Adverse Reaction (Severe, Verified 04/20/25 15:04) Blurry Vision HPI HPI eval fecal gus and prednisone: Details: Assessment & Plan (1) Ulcerative colitis: Comment: Ulcer proctitis Code(s): K51.90 - Ulcerative colitis, unspecified, without complications Category: Medical Plan Citizen [place] #[place] Live She continues to feel well on the Stelara. Even though her fecal gus is lower than ever prior, it is not as low as I would like. We will put her on a dose of prednisone 20mg and re eval in 4 or so weeks. I think it will stay down with the Stelara after this. ROV week oe 04/04 Orders: Orders Calprotectin, Fecal 03/29/25 K51.90 - Ulcerative colitis, unspecified, without complications Medications: New prednisone 20 mg (2 x 10 mg) PO DAILY 60 tabs 1RF K51.90 - Ulcerative colitis, unspecified, without complications Refilled ustekinumab (Stelara) INYECTE 1 JERINGA SUBCUTANEAMENTE CADA 8 SEMANAS 1 mL 0RF Laboratory Tests 08/21/23 02/26/25 04/12/25 14:25 09:30 14:25 Stool Calprotectin 955 H 419 H 41 TODAY'S VISIT Citizen [place] #[place] Live She is taking 2 prednisone a day and the fecal gus is now normal. I want her to cut back to 1 tab for 2 weeks, then stop. We will repeat the fecal calprotecin 2 weeks after steroid cessation. Her sx continue to be controlled and there has not been much of a difference with the steroid addition. However, we do want to minimize colonic irritation to prevent CRC. She received a letter from her insurance saying they would not cover the Stelara after May. We will look in to this. She now is no longer on [facility] and now has copays for many of her medications. BUT we gave her a copay card for Stelara. ROV 8 weeks. [facility] Medical History Diabetes Focal nodular hyperplasia of liver High cholesterol Left bundle branch block Dermoid cyst Uterine fibroid Anemia Renal arterial aneurysm Hypertension Nephrolithiasis PCOS (polycystic ovarian syndrome) Pre-op examination Surgical History Hx of colonoscopy Hx of section Family History Father No problems noted. Mother Breast cancer Social History Are you a primary animal caretaker supervisor to a significant other at home: No Do you presently have visiting nurse or other home services: No Alcohol intake: never Patient Tobacco Use Status: Never used Tobacco Review of Systems Const Denies fatigue, Denies fever(s), Denies night sweats, Denies poor appetite and Denies weight loss ENT Reports Normal hearing present, Denies dental pain, Denies dysphagia, Denies hearing loss, Denies mouth pain, Denies odynophagia, Denies throat swelling, Denies tongue swelling and Reports other (Dentition adequate) Card Reports no additional complaints Resp Reports no additional complaints GI Details: Denies abdominal pain, Denies melena, Denies bloating, Denies hematochezia, Denies constipation, Reports GI cramping, Denies dysphagia, Denies excessive flatus, Denies early satiety, Denies heartburn, Denies diarrhea, Reports loose stools, Denies nausea, Denies odynophagia, Denies vomiting and Denies hematemesis Skin/Breast Denies pruritus, Denies lesions, Denies rash and Denies jaundice Neuro Reports Normal hearing present and Denies Abnormal speech present Endo Denies fatigue Aller/Immun Denies throat swelling and Denies tongue swelling Physical Exam Const General: cooperative, no acute distress, well developed and well groomed Nutritional Appearance: average body habitus and well nourished Orientation/consciousness: oriented to person, oriented to place and oriented to time Limitations: language barrier HEENT Head: Yes normocephalic and Yes atraumatic Eyes General: appearance normal, both eyes and all related structures Pupils: Equal, round and reactive pupils present Neck Neck: Yes normal visual inspection and Yes no lymphadenopathy Thyroid: Thyroid normal Resp Effort & Inspection: normal respiratory effort and able to speak in complete sentences Auscultation: clear to auscultation bilaterally Cardio Rate: regular rate Rhythm: regular rhythm Heart sounds: Normal, physiologic split S2 sound present Peripheral pulses: radial pulses present and posterior tibial pulses present GI Inspection: No distended and No Abdominal panniculus present Palpation (GI): Soft to palpation, nontender, no guarding, not rigid and No hepatosplenomegaly present Percussion: Yes normal to percussion Auscultation: normal bowel sounds Rectal Exam - Female: deferred Skin General skin exam: no rashes or lesions noted, turgor normal, skin not dry, no jaundice, No spider nevi and no striae Rashes: no rashes Nails: normal Neuro General: oriented to person, oriented to place and oriented to time Cranial nerves: Yes Equal, round and reactive pupils present and Yes Normal hearing present Speech: No Abnormal speech present Extrem General: Yes normal to inspection, No clubbing, No cyanosis and No edema Psych Appearance: grossly normal and well kempt Mental Status: mental status grossly normal Speech and movement: Normal speech and movement present Affect: normal affect Attitude: cooperative Thought process: Normal thought process present and not confabulating Thought content: Normal thought content present Insight: Good insight present (Psych) Judgement: Good judgement present (Psych) Results Reviewed Results Reviewed: Laboratory Tests 08/21/23 02/26/25 04/12/25 14:25 09:30 14:25 Stool Calprotectin 955 H 419 H 41 Assessment & Plan Assessment & Plan (1) Ulcerative colitis: Comment: Ulcer proctitis Laboratory Tests 08/21/2306/ 14:2509:3014:25 Stool Calprotectin 955 H 419 H 41 Code(s): K51.90 - Ulcerative colitis, unspecified, without complications Category: Medical Plan Citizen [place] #V Live She is taking 2 prednisone a day and the fecal gus is now normal. I want her to cut back to 1 tab for 2 weeks, then stop. We will repeat the fecal calprotecin 2 weeks after steroid cessation. Her sx continue to be controlled and there has not been much of a difference with the steroid addition. However, we do want to minimize colonic irritation to prevent CRC. She received a letter from her insurance saying they would not cover the Stelara after May. We will look in to this. She now is no longer on [facility] and now has copays for many of her medications. BUT we gave her a copay card for Stelara. ROV 8 weeks. Orders: Orders Calprotectin, Fecal Today K51.90 - Ulcerative colitis, unspecified, without complications Coding Level of Care Code Est Pt Level 3 (26307) Diagnoses Ulcerative colitis K51.90
[2025-04-20 14:58] VITALS: BP 116/66; PULSE 95; BMI 25.8
== END 2025-04-20 15:21 | disposition home or self-care (01) ==
LOC: HO.HGI 14:48
PROVIDERS: PCP Internal Medicine; Visit Provider Nurse Practitioner
DX: K51.90 Ulcerative colitis, unspecified, without complications (principal)
CPT/HCPCS: 99213

== ENCOUNTER → 2025-04-20 14:47 | Outpatient (BNVA) | payer OTHER, SELFPAY | PROVIDERS: PCP Internal Medicine; Visit Provider Nurse Practitioner | DX: K51.90 Ulcerative colitis, unspecified, without complications (principal) | CPT/HCPCS: 99212 ==

== ENCOUNTER 2025-05-06 10:11 | Outpatient (REF) | payer OTHER, SELFPAY ==
--- OUTSIDE RECORDS SUMMARY | 2025-05-06 10:21 | XMS_ITS | Patient Health Record ---
Author Organization [facility] Address [address] [place] [address] Care Team Providers Care Mine Deputy Name Role Phone Cecilia Pierce Primary Care Provider Unavailab Jermaine Arango Unavailable [phone] Reason For Referral No Information Medications Medication SIG (Take, Route, Fr equency, Duration) Notes Start Date End Date Status amLODIPine Besylate Active Invokana Active Norethindrone Active metFORMIN HCl ER Act dorota Problems Problem Type SNOMED Code ICD Code Onset Dates Problem Status W/U Status Risk Notes Problem 553152950 Abnormal CT of liver (R93.2) Active confirmed Problem 522976836 Liver lesion (K76.9) Active confirmed Plan Of Treatment Pending Test Test Name Order Date BUN 06/05/2016 CREATININE 06/05/2016 LIVER PROFILE 06/05/2016 ALPHA-FETOPROTEIN,TUMOR MARKER 6 MRI ABD W&WO CONTRAST 06/05/2016 Insurance Providers Payer Name Payer Address Payer Phone Subscriber Number Group Number Insured Name Patient Relationship to Insured Coverage Start Date Coverage End Date [facility] [address] [address] [place], [place] [id number] LIEN BRISENO Self - patient is the insured Medical (General) History Medical History History ICD Code NIDDM Hypertension Denies [place],CVA,Lung disease,renal disease Kidney stone Surgical History Surgery Date(Month/Year)
[2025-05-06 10:59] LABS: Hemoglobin A1C 263.4655 umol/L; Total Hemoglobin (HGBA1C) 3493.8157 umol/L
[2025-05-06 11:28] LABS: Alanine Aminotransferase 27 U/L (0-31); Albumin Level 4.1 g/dL (3.5-5.0); Anion Gap 13 (12-20); Aspartate Amino Transferase 28 U/L (5-31); Blood Urea Nitrogen 6 mg/dL (9-16); Calcium 8.9 mg/dL (8.4-10.2); Carbon Dioxide 26 mmol/L (22-29); Chloride 107 mmol/L (96-108); Cholesterol 181 mg/dL (<200); Estimated Glomerular Filt Rate > 60; HDL Cholesterol 41 mg/dL (>40); Potassium 3.5 mmol/L (3.3-5.1); Sodium 142 mmol/L (135-145); Total Protein 6.7 g/dL (6.5-8.0); Triglycerides 102 mg/dL (<150)
[2025-05-06 11:36] LABS: Alkaline Phosphatase 81 U/L (39-117)
== END 2025-05-06 10:12 | disposition home or self-care (01) ==
LOC: HO.LAB 10:11
PROVIDERS: PCP Internal Medicine; Visit Provider Internal Medicine
DX: Z00.01 Encounter for general adult medical examination with abnormal findings (principal); E11.65 Type 2 diabetes mellitus with hyperglycemia; E78.00 Pure hypercholesterolemia, unspecified; R80.9 Proteinuria, unspecified
CPT/HCPCS: 36415; 80053; 80061; 83036

== ENCOUNTER 2025-08-01 09:59 | Outpatient (REF) | payer OTHER, SELFPAY ==
[2025-08-01 11:48] LABS: Alanine Aminotransferase 29 U/L (0-31); Albumin Level 4.4 g/dL (3.5-5.0); Alkaline Phosphatase 111 U/L (39-117); Anion Gap 11 (12-20); Aspartate Amino Transferase 23 U/L (5-31); Blood Urea Nitrogen 10 mg/dL (9-16); Calcium 9.4 mg/dL (8.4-10.2); Carbon Dioxide 25 mmol/L (22-29); Chloride 110 mmol/L (96-108); Cholesterol 181 mg/dL (<200); Estimated Glomerular Filt Rate > 60; HDL Cholesterol 38 mg/dL (>40); Potassium 4.1 mmol/L (3.3-5.1); Sodium 142 mmol/L (135-145); Total Protein 7.2 g/dL (6.5-8.0); Triglycerides 202 mg/dL (<150)
== END 2025-08-01 10:00 | disposition home or self-care (01) ==
LOC: HO.LAB 09:59
PROVIDERS: PCP Internal Medicine; Visit Provider Internal Medicine
DX: E11.65 Type 2 diabetes mellitus with hyperglycemia (principal); E78.00 Pure hypercholesterolemia, unspecified; I10 Essential (primary) hypertension; K51.90 Ulcerative colitis, unspecified, without complications
CPT/HCPCS: 36415; 80053; 80061; 83036

== ENCOUNTER 2025-09-05 14:58 | Outpatient (REF) | payer OTHER, SELFPAY ==
--- NOTE | 2025-09-05 | EMG_ITS ---
Chief complaint: Bilateral hand numbness, CTS Referred by:Cecilia Najera Procedure done: Bilateral upper extremities NCS/EMG Bilateral median and ulnar motor studies were performed with F responses. Bilateral median mixed and 2nd and 5th digit ortho sensory studies were performed and radial sensory studies were performed. Paraspinal muscles were tested with a needle. Findings: Bilateral median motor distal latencies were mildly prolonged. Median mixed distal latencies were moderately prolonged especially on the left side with conduction velocity in 20s on the left side and 30s on right. Similar pattern was noted with ortho sensory studies. Impression: [id number], left more than right, median neuropathy across carpal tunnel [place]in 03[address] 2 extremities MTDD
--- OUTSIDE RECORDS SUMMARY | 2025-09-05 21:31 | XMS_ITS | Patient Health Record ---
Author Organization [facility] Address [address] [place] [address] Care Team Providers Care Commercial Lines Account Executive Name Role Phone Piochristo Cecilia Primary Care Provider Unavailab Jermaine Arango Unavailable [phone] Reason For Referral No Information Medications Medication SIG (Take, Route, Fr equency, Duration) Notes Start Date End Date Status amLODIPine Besylate Active Invokana Active Norethindrone Active metFORMIN HCl ER Act dorota Social History Social History Additional Details Category Social Info Options Details Miscellaneous: Marital status: single Occupation: [email or web address] Section Notes: Nonsmoker; occ. alcohol Problems Problem Type SNOMED Code ICD Code Onset Dates Problem Status W/U Status Risk Notes Problem Abnormal findings diagnostic imaging of liver and biliary tract (331043462) Abnormal CT of liver (R93.2) Active confirmed Problem Lesion of liver (824671252) Liver lesion (K76.9) Active confirmed Plan Of Treatment Pending Test Test Name Order Date BUN 06/05/2016 CREATININE 06/05/2016 LIVER PROFILE 06/05/2016 ALPHA-FETOPROTEIN,TUMOR MARKER 6 MRI ABD W&WO CONTRAST 06/05/2016 Insurance Providers Payer Name Payer Address Payer Phone Subscriber Number Group Number Insured Name Patient Relationship to Insured Coverage Start Date Coverage End Date [facility] [employer] [facility] [address] [address] [place], [place] [phone] [id number] LIEN BRISENO Self - patient is the insured Medical (General) History Medical History History ICD Code NIDDM Hypertension Denies MD,CVA,Lung disease,renal disease Kidney stone Surgical History Surgery Date(Month/Year)
== END 2025-09-05 14:59 | disposition home or self-care (01) ==
LOC: HO.NEURO 14:58
PROVIDERS: PCP Internal Medicine; Visit Provider Internal Medicine
DX: G56.03 Carpal tunnel syndrome, bilateral upper limbs (principal)
CPT/HCPCS: 95886; 95913

== ENCOUNTER → 2025-09-05 15:00 | Outpatient (BNV) | payer OTHER, SELFPAY | PROVIDERS: PCP Internal Medicine; Visit Provider Psychiatry & Neurology Neurology | DX: G56.03 Carpal tunnel syndrome, bilateral upper limbs (principal) | CPT/HCPCS: 95886; 95913 ==